=== PATIENT | female | born 1970 | race Caucasian/White ===

== ENCOUNTER 2024-06-08 13:44 | Observation (INO) | payer OTHER, SELFPAY ==
[2024-06-08] VITALS (44 sets, daily range): BP systolic 102–149; BP diastolic 65–86; PULSE 110–126; RESP 13–35; TEMP 36.7–38.4; O2SAT 91–99
--- NOTE | 2024-06-08 13:49 | ECG_ITS ---
[facility] Test Date: 2024-06-08 Pat Name: Esthela Becker Department: Room: Gender: Female License Registration Examiner: : 1970 Requested By: Spencer Ortiz Order Number: [id number] Jens MD: Patience Rousseau M.D. Measurements Intervals [place] Rate: 125 P: 20 CO: 142 QRS: -10 QRSD: 93 T: 97 QT: 307 QTc: 444 Interpretive Statements SINUS TACHYCARDIA POSSIBLE ANTERIOR MYOCARDIAL INFARCTION , OF INDETERMINATE AGE [30 ms Q WAVE IN V3/V4, OR R < 0.2 mV IN V4] MODERATE T-WAVE ABNORMALITY, CONSIDER LATERAL ISCHEMIA [-0.1+ mV T-WAVE IN I/aVL/V5/V6] No previous ECG available for comparison Electronically Signed On 06-10-2024 21:41:34 MIXING OPERATOR by Patience Rousseau M.D. [email or web address]
--- NOTE | 2024-06-08 14:08 | W.ED.WEAKNES ---
HPI - Weakness General: Chief complaint: Weakness Stated complaint: bs435 bp200/100, SHAKING, SWEATING Time Seen by Provider: 06/08/24 14:08 History of Present Illness: 54-year-old female presents to the emergency room with fever weakness high blood sugar. Symptoms began today she is also complaining of left flank pain that started a couple of days ago. Patient is a type II diabetic she stopped taking her metformin due to diarrhea. She denies any dysuria urgency or frequency she has had diarrhea no hematochezia or melena. No chest pain or shortness of breath. Fever began earlier today. She denies productive cough. At one point they were looking at putting her on insulin for her diabetes but she did not because of the cost Associated symptoms: Reports nausea and vomiting; Denies chest pain, chills, dysuria or fever(s) Review of Systems Const: Denies: fever(s) or chills Card: Denies: chest pain Resp: Denies: dyspnea GI: Reports: abdominal pain, nausea, vomiting and diarrhea : Reports: flank pain; Denies: dysuria, urinary frequency or urinary urgency Musc: Denies: neck pain or back pain Skin/Breast: Denies: rash PFSH ED PFSH: Medical History DM type 2 (diabetes mellitus, type 2) Surgical History H/O: Physical Exam Const: COMMON NORMALS: no acute distress GENERAL APPEARANCE: cooperative ORIENTATION/CONSCIOUSNESS: Yes awake, Yes oriented to person, Yes oriented to place and Yes oriented to time HENMT: COMMON NORMALS: normocephalic, atraumatic and hearing grossly normal bilaterally HEAD & SCALP: normocephalic and atraumatic Resp: COMMON NORMALS: normal respiratory effort, No retractions, No use of accessory muscles and clear to auscultation bilaterally AUSCULTATION: clear to auscultation bilaterally Cardio: COMMON NORMALS: regular rhythm and No murmurs present (Cardio) RATE: tachycardic RHYTHM: regular rhythm GI: COMMON NORMALS: Soft to palpation and No hepatosplenomegaly present AUSCULTATION: Yes normoactive bowel sounds PALPATION: Yes Soft to palpation, No Tenderness to palpation present (GI), No Guarding due to palpation present (GI) and Yes No hepatosplenomegaly present Extremity: COMMON NORMALS: normal to inspection, capillary refill normal, no clubbing, cyanosis or edema, no calf tenderness and no pedal edema Neuro: SENSORIUM/ORIENTATION: Yes oriented to person, Yes oriented to place and Yes oriented to time Skin: COMMON NORMALS: no rashes or lesions noted GENERAL SKIN EXAM: no rashes or lesions noted Course Vital Signs: Vital signs: Vital Signs Temperature 98.0 F 06/10/24 13:51 Pulse Rate 83 06/10/24 13:51 Respiratory Rate 14 06/10/24 13:51 Blood Pressure 125/79 06/10/24 13:51 Pulse Oximetry 93 06/10/24 13:51 Oxygen Delivery Me thod Room Air 06/10/24 11:48 MDM - Weakness Medical Decision Making Slight elevation of anion gap blood sugars poorly controlled which has been chronic she has a UTI and she has been tachycardic and febrile white count is not elevated. However these other contributing issues making very concerned suggest we place her on observation started on IV antibiotics discussed with hospitalist orders written Medical Records I reviewed the patient's medical records. Lab Data I reviewed the patient's lab results. 06/10/24 05:02 06/10/24 05:02 Radiology Impressions Abdomen/Pelvis CT 06/08/24 14:20 IMPRESSION: Porcelain gallbladder, recommend surgical consult for nonemergent follow-up. ADDENDUM: 06/08/24 2306 ADDENDUM: Correction for pancreas findings: There is no enhancement as there was no contrast administered. Pancreas is unremarkable. Chest X-Ray 06/08/24 17:03 IMPRESSION: No acute findings. Lumbar Spine CT 06/09/24 19:04 IMPRESSION: 1. Patchy heterogeneous enhancement RIGHT kidney with focal areas of decreased enhancement compatible with pyelonephritis. Recommend correlation for UTI. Additional slight heterogeneous enhancement LEFT kidney partially visualized also suspicious for pyelonephritis. 2. Mild central canal stenosis L4-5 due to disc bulge and facet arthropathy with ligamentum flavum hypertrophy. Narrowing of the LEFT subarticular recess with mild LEFT foraminal narrowing. 3. No visualized epidural or retroperitoneal abscess Notified Burt Easley MD at 06/10/2024 8:56 AM. Laboratory Results WBC 8.65 10^3/uL (3.29-11.43) 06/08/24 14: RBC 4.64 10^6/uL (3.85-5.65) 06/08/24 14:31 Hgb 14.00 g/dL (11.27-16.99) 06/08/24 14:31 Hct 40.3 % (36-47) 06/08/24 14: MCV 86.9 fl (85-98) 06/08/24 14:31 MCH 30.2 pg (27-33) 06/08/24 14: MCHC 34.7 g/dL (30-55) 06/08/24 14: RDW 11.2 % (12.1-15.1) L 06/08/24 14: Plt Count 218 10^3/cmm (157-399) 06/08/24 14: MPV 8.8 fL (7.4-10.4) 06/08/24 14: Neut % (Auto) 92.5 % 06/08/24 14: Lymph % (Auto) 5.2 % 06/08/24 14: [place] % (Auto) 1.3 % 06/08/24 14: Eos % (Auto) 0.5 % 06/08/24 14: Baso % (Auto) 0.2 % 06/08/24 14: Neut # (Auto) 8.00 10^3/uL (1.8-7.7) H 06/08/24 14: Lymph # (Auto) 0.5 10^3/uL (0.8-4.8) L 06/08/24 14:31 [place] # (Auto) 0.1 10^3/uL (0.2-0.9) L 06/08/24 14: Eos # (Auto) 0.0 10^3/uL (0.0-0.8) 06/08/24 14: Baso # (Auto) 0.0 10^3/uL (0.0-0.1) 06/08/24 14: Nucleated RBC % (auto) 0 % 06/08/24 14: Nucleated RBCs # 0.0 /100WBC 06/08/24 14:31 Specimen Type Arterial 06/08/24 14:50 Sample Site Radial, right 06/08/24 14:50 ABG pH 7.45 (7.35-7.45) 06/08/24 14:50 ABG pCO2 28.8 mmHg (35-45) L 06/08/24 14:50 ABG pO2 63.7 mmHg (80.0-100.0) L 06/08/24 14:50 ABG PO2/FiO2 Ratio 227 06/08/24 14:50 ABG HCO3 20.1 mmol/L (22-26) L 06/08/24 14:50 ABG O2 Saturation 93.9 06/08/24 14:50 ABG Base Excess -2.5 mmol/L (-2.0-2.0) L 06/08/24 14:50 Gene Test Pos 06/08/24 14:50 A-a O2 Gradient 12.7 mmHg (5-10) H 06/08/24 14:50 Hematocrit 45.4 % (37-47) 06/08/24 14:50 Hgb O2 Saturation 93.2 % (95-100) L 06/08/24 14:50 Carboxyhemoglobin 0.5 %THgb (0.4-20.1) 06/08/24 14:50 Methemoglobin 0.3 % (0.4-1.5) L 06/08/24 14:50 Total Hemoglobin 14.8 g/dL (12-16) 06/08/24 14:50 Sodium 136.0 mmol/L (131-143) 06/08/24 14:50 Potassium 3.5 mmol/L (3.5-5.0) 06/08/24 14:50 Glucose 344.0 mg/dL (70-115) H 06/08/24 14:50 Ionized Calcium 1.2 mmol/L (1.1-1.4) 06/08/24 14:50 O2 Delivery Device Nc 06/08/24 14:50 O2 Liters/Min 2.0 % 06/08/24 14:50 FiO2 28.0 % 06/08/24 14:50 Plant Reliability Engineer ID [id number] 06/08/24 14:50 Sodium 133 mmol/L (136-145) L 06/08/24 14:31 Potassium 3.7 mmol/L (3.5-5.1) 06/08/24 14:31 Chloride 97 mmol/L (98-107) L 06/08/24 14:31 Carbon Dioxide 20 mmol/L (22-29) L 06/08/24 14:31 Anion Gap 19.7 (5-19) H 06/08/24 14:31 BUN 13 mg/dL (6-20) 06/08/24 14:31 Creatinine 0.8 mg/dL (0.5-0.9) 06/08/24 14:31 GFR Calculation 75.0 mL/min (90-130) L 06/08/24 14:31 Glucose 387 mg/dL (65-115) H 06/08/24 14:31 POC Glucose 388 mg/dL (70-110) H 06/08/24 14:29 Estimat Average Glucose 292 06/08/24 14:31 Hemoglobin A1c 11.8 % (4.0-6.0) H 06/08/24 14:31 Calculated Osmolality 292 mOsm/kg (285-295) 06/08/24 14:31 Lactic Acid 2.1 mmol/L (0.5-2.2) 06/08/24 14:31 Lactic Acid (Sepsis) 1.2 mmol/L (0.5-2.2) 06/08/24 17:30 Calcium 8.7 mg/dL (8.5-10.5) 06/08/24 14:31 Total Bilirubin 0.9 mg/dL (0.15-1.2) 06/08/24 14:31 AST 12 U/L (0-32) 06/08/24 14:31 ALT 14 U/L (0-33) 06/08/24 14:31 Alkaline Phosphatase 180 U/L (35-105) H 06/08/24 14:31 Total Protein 6.6 g/dL (6.6-8.7) 06/08/24 14:31 Albumin 3.7 g/dL (3.5-5.2) 06/08/24 14:31 Globulin 2.9 g/dL (1.3-4.6) 06/08/24 14:31 Lipase 22 U/L (13-60) 06/08/24 14:31 Urine Color Yellow (Yellow) 06/08/24 16:17 Urine Appearance Clear (CLEAR) 06/08/24 16:17 Urine pH 5.5 (5-7) 06/08/24 16:17 Ur Specific [place] 1.027 (1.005-1.030) 06/08/24 16:17 Urine Protein Negative (Negative) 06/08/24 16:17 Urine Glucose (UA) 3+ (Normal) H 06/08/24 16:17 Urine Ketones 2+ (Negative) H 06/08/24 16:17 Urine Blood Negative (Negative) 06/08/24 16:17 Urine Nitrate Positive (Negative) A 06/08/24 16:17 Urine Bilirubin Negative (Negative) 06/08/24 16:17 Urine Urobilinogen 0.2 mg/dL (Negative) 06/08/24 16:17 Ur Leukocyte Esterase Negative (Negative) 06/08/24 16:17 Urine RBC 0-2 /hpf (0-2) 06/08/24 16:17 Urine WBC 6-10 /hpf (0-5) 06/08/24 16:17 Ur Squamous Epith Cells 0-5 /hpf (0-5) 06/08/24 16:17 Amorphous Sediment Not Reportable 06/08/24 16:17 Urine Bacteria 4+ /hpf (NONE) H 06/08/24 16:17 Hyaline Casts 1.65 /lpf 06/08/24 16:17 Serum Ketones Negative (Negative) 06/08/24 14:31 Coronavirus (PCR) Negative (Negative) 06/08/24 16:17 Influenza A (PCR) Negative (Negative) 06/08/24 16:17 Influenza Type B (PCR) Negative (Negative) 06/08/24 16:17 RSV (PCR) Negative (Negative) 06/08/24 16:17 All radiology interpretation(s) finalized by discharge Discharge Plan Discharge Patient Disposition: Admitted As Inpatient Admit Provider: Burt Easley Clinical Impression: UTI (urinary tract infection), Porcelain gallbladder, Flank pain, Fever, Hyperglycemia, Pyelonephritis Condition: Stable Discharge Diet: Cardiac and Diabetic Coding Level of Care Code ED Transportation Equipment Painter for Chg Fwd Related Data Previous Rx's Medication Instructions Recorded ciprofloxacin HCl 500 mg tablet 500 mg PO BID #14 tabs 06/10/24 diabetic supplies, miscellan. #1 ea 06/10/24 insulin glargine 100 unit/mL (3 12 unit (0.12 mL) SUBCUT QPM #15 mL 06/10/24 mL) subcutaneous pen insulin lispro-aabc 100 unit/mL See Rx Instructions .Route 06/10/24 subcutaneous pen .COMPLEX #15 mL magnesium L-threonate 48 mg 48 mg PO DAILY #90 caps 06/10/24 magnesium (667 mg) capsule terbinafine HCl 1 % topical cream 1 applic topical BID 14 days #15 06/10/24 grams Allergies Allergy/AdvReac Type Severity Reaction Status Date / Time No Known Allergies Allergy Verified 06/08/24 14:04
--- NOTE | 2024-06-08 14:20 | CTR_ITS ---
PROCEDURE INFORMATION: Exam: CT Abdomen And Pelvis Without Contrast Exam date and time: 06/08/2024 2:43 PM Age: 54 years old Clinical indication: Abdominal pain TECHNIQUE: Imaging protocol: Computed tomography of the abdomen and pelvis without contrast. Radiation optimization: All CT scans at this facility use at least one of these dose optimization techniques: automated exposure control; mA and/or kV adjustment per patient size (includes targeted exams where dose is matched to clinical indication); or iterative reconstruction. COMPARISON: l spine RADIATION DOSE METRICS: Total DLP (mGy-cm): 782.21 FINDINGS: Limitations: Examination is limited for the evaluation of solid organs and vascular structures due to the lack of intravenous contrast. Lungs: Lung bases are unremarkable. Liver: The liver is enlarged. Gallbladder and biliary ducts: There is calcification in the wall of the gallbladder indicating porcelain gallbladder.. No pericholecystic inflammatory changes to suggest cholecystitis. Pancreas: Pancreas enhances homogeneously without focal mass. No ductal dilation or peripancreatic inflammation. Spleen: The spleen is unremarkable. Adrenal glands: Adrenal glands are unremarkable. Kidneys and ureters: No hydronephrosis or nephrolithiasis. Stomach and bowel: Stomach is not fully distended. Small hiatal hernia. Small and large bowel are normal in caliber without evidence of obstruction. Appendix: Appendix is unremarkable. Intraperitoneal space: No free intraperitoneal air. No fluid collection. Vasculature: There is no aortic aneurysm. There is atherosclerotic disease. Lymph nodes: No pathologically enlarged lymph nodes (by short axis size criteria). Urinary bladder: No focal wall thickening of the urinary bladder. Reproductive: Uterus is unremarkable. No suspicious adnexal lesion seen. Bones/joints: Spherical benign-appearing calcification anterior to the left side of the bladder. No acute osseous abnormality. There is degenerative disease of the spine. Soft tissues: Unremarkable. CT/CT abdomen pelvis wo con [id number] IMPRESSION: Porcelain gallbladder, recommend surgical consult for nonemergent follow-up.
[2024-06-08 14:39] LABS: Glucose Point of Care 388 mg/dL (70-110)
[2024-06-08 14:42] LABS: Basophils % 0.2 %; Eosinophils % 0.5 %; Hematocrit 40.3 % (36-47); Lymphocytes # 0.5 10^3/uL (0.8-4.8); Lymphocytes % 5.2 %; Mean Corpuscular HGB Conc 34.7 g/dL (30-55); Mean Corpuscular Hemoglobin 30.2 pg (27-33); Mean Corpuscular Volume 86.9 fl (85-98); Mean Platelet Volume 8.8 fL (7.4-10.4); Monocytes # 0.1 10^3/uL (0.2-0.9); Monocytes % 1.3 %; Neutrophils % 92.5 %; Nucleated Red Blood Cells % 0 %; Platelet Count 218 10^3/cmm (157-399); Red Blood Count 4.64 10^6/uL (3.85-5.65); Red Cell Distribution Width 11.2 % (12.1-15.1); White Blood Count 8.65 10^3/uL (3.29-11.43)
[2024-06-08 15:01] LABS: Alanine Aminotransferase 14 U/L (0-33); Albumin Level 3.7 g/dL (3.5-5.2); Alkaline Phosphatase 180 U/L (35-105); Anion Gap 19.7 (5-19); Aspartate Amino Transferase 12 U/L (0-32); Blood Urea Nitrogen 13 mg/dL (6-20); Calcium 8.7 mg/dL (8.5-10.5); Carbon Dioxide 20 mmol/L (22-29); Chloride 97 mmol/L (98-107); Globulin 2.9 g/dL (1.3-4.6); Glucose 387 mg/dL (65-115); Ketone (Acetest) Serum Negative (Negative); Lipase 22 U/L (13-60); Osmolality Calculated 292 mOsm/kg (285-295); Potassium 3.7 mmol/L (3.5-5.1); Sodium 133 mmol/L (136-145); Total Bilirubin 0.9 mg/dL (0.15-1.2); Total Protein 6.6 g/dL (6.6-8.7)
[2024-06-08 15:02] LABS: Lactic Sepsis W/Reflex 2.1 mmol/L (0.5-2.2)
[2024-06-08 15:09] LABS: ABG PCO2 28.8 mmHg (35-45); ABG PH Result 7.45 (7.35-7.45); Alveolar-Arterial Oxygen Gradi 12.7 mmHg (5-10); Arterial Blood Gas Hematocrit 45.4 % (37-47); Base Excess ABG -2.5 mmol/L (-2.0-2.0); Blood Gas Allen Test Pos; Blood Gas Operator Identificat GD; Blood Gas Sample Site Radial, right; Blood Gas Sample Type Arterial; Carboxyhemoglobin 0.5 %THgb (0.4-20.1); HCO3 ABG 20.1 mmol/L (22-26); HGB O2 Sat 93.2 % (95-100); Ionized Calcium Level - ABG 1.2 mmol/L (1.1-1.4); Methemoglobin 0.3 % (0.4-1.5); Oxygen Device NC; Oxygen Saturation ABG 93.9; PO2 ABG 63.7 mmHg (80.0-100.0); PO2 FiO2 Ratio Arterial Blood 227; Potassium Level - ABG 3.5 mmol/L (3.5-5.0); Total Hemoglobin 14.8 g/dL (12-16)
[2024-06-08] MEDS: sodium chloride 0.9% 1,000 ML 999 ML IV (15:43)
[2024-06-08 16:24] LABS: Reflex Lactate Order REFLEX LACTIC ORDERD
[2024-06-08 16:36] LABS: Bilirubin Urine Negative (Negative); Blood Urine Negative (Negative); Glucose Urine UA 3+ (Normal); Ketones Urine 2+ (Negative); Leukocyte Esterase Urine Negative (Negative); Nitrate Urine Positive (Negative); Protein Urine Negative (Negative); Specific Gravity, Urine 1.027 (1.005-1.030); Urine Appearance Clear (CLEAR); Urine Color Yellow (Yellow); Urobilinogen Urine 0.2 mg/dL (Negative); pH Urine 5.5 (5-7)
[2024-06-08 16:41] LABS: Add Urine Microscopic? YES; Bacteria Urine 4+ /hpf; Hyaline Casts Urine 1.65 /lpf; RBC Urine 0-2 /hpf (0-2); Squamous Epithelial Cell Urine 0-5 /hpf (0-5)
[2024-06-08 16:52] LABS: Add Urine Culture? Yes
--- NOTE | 2024-06-08 17:03 | XRR_ITS ---
PROCEDURE INFORMATION: Exam: XR Chest Exam date and time: 06/08/2024 5:09 PM Age: 54 years old Clinical indication: Dyspnea; Additional info: Dyspnea/cough TECHNIQUE: Imaging protocol: Radiologic exam of the chest. Views: 1 view. COMPARISON: CT abdomen pelvis wo con [id number] 06/08/2024 2:43 PM FINDINGS: Lungs: Unremarkable. No consolidation. Pleural spaces: Unremarkable. No pleural effusion. No pneumothorax. Heart/Mediastinum: Unremarkable. No cardiomegaly. Bones/joints: Unremarkable. XR/XR chest 1V portable [id number] IMPRESSION: No acute findings.
[2024-06-08 17:14] LABS: Covid PCR NEGATIVE (Negative); Influenza A NEGATIVE (Negative); Influenza B NEGATIVE (Negative); Respiratory Syncytial Virus Ce NEGATIVE (Negative)
[2024-06-08] MEDS: cefTRIAXone 1,000 mg SDV 1000 MG IVP (17:35)
[2024-06-08 17:52] LABS: Lactic Acid level (Lactate) 1.2 mmol/L (0.5-2.2)
--- NOTE | 2024-06-08 18:58 | P.HP_ITS ---
Providers/Chief Complaint 2 Admitting Physician: Burt Easley Chief Complaint: bs435 bp200/100, SHAKING, SWEATING History of Present Illness Esthela Becker is a 54 year old female Medications/Allergies Home Medications Medication Instructions Recorded Confirmed Last Taken Type ibuprofen 200 mg tablet (Advil) 1,000 mg PO Q6H PRN PAIN AND FEVER 06/08/24 06/08/24 06/08/24 07:00 History Allergies Allergy/AdvReac Type Severity Reaction Status Date / Time No Known Allergies Allergy Verified 06/08/24 14:04 PFSH Acute 2 PFSH: Medical History DM type 2 (diabetes mellitus, type 2) Surgical History H/O: Vitals/I&O/Wt Last Vital Signs Temp 101.2 F H 06/08/24 13:58 Pulse 110 H 06/08/24 18:28 Resp 13 06/08/24 17:35 BP 111/81 06/08/24 18:28 Pulse Ox 99 06/08/24 18:28 O2 Del Method Room Air 06/08/24 18:19 Weight last 48 hrs Weight 78.925 kg Physical Exam 2 Narrative: Accompanied by her daughter Const: COMMON NORMALS: patient oriented x3 and alert GENERAL APPEARANCE: c ooperative ORIENTATION/CONSCIOUSNESS: Yes awake HENMT: COMMON NORMALS: oropharynx normal Neck/C-Spine: COMMON NORMALS: no JVD Resp: COMMON NORMALS: normal respiratory effort and clear to auscultation bilaterally AUSCULTATION: clear to auscultation bilaterally Cardio: COMMON NORMALS: no JVD, regular rhythm, S1 normal heart sound present, S2 normal heart sound present and No murmurs present (Cardio) RATE: t achycardic RHYTHM: regular rhythm HEART SOUNDS: S1 normal heart sound present and S2 normal heart sound present GI: COMMON NORMALS: Normal to inspection, nondistended, normoactive bowel sounds present, Soft to palpation and non-tender PALPATION: Yes Soft to palpation Extremity: COMMON NORMALS: no joint enlargement and no pedal edema Neuro: COMMON NORMALS: patient oriented x3 and moves all extremities S ENSORIUM/ORIENTATION: Yes alert Skin: COMMON NORMALS: no rashes or lesions noted GENERAL SKIN EXAM: no rashes or lesions noted Data 06/08/24 14:31 06/08/24 14:31 Micro: Microbiology 06/08/24 14:33 Blood Culture - Preliminary Blood SPECIMEN COLLECTED 06/08/24 14:31 Blood Culture - Preliminary Blood SPECIMEN COLLECTED A&P Assessment and plan (1) High anion gap metabolic acidosis: Reviewed vitals, CBC, ABG, CMP, lactic acid, lipase, UA, serum ketone, respiratory viral panel, chest x-ray, CT abdomen pelvis. ER note, discussed with ER provider. Reviewed EKG, on my interpretation sinus tachycardia with T wave inversion in 1, aVL, without sign of acute IL, pending official interpretation. Suspected early diabetic ketoacidosis with elevated anion gap metabolic acidosis with bicarb down to 20, anion gap up to 19.7, with hyperglycemia, 388, but she states at home blood glucose sometimes reaches as high as 500 with untreated diabetes, with ketones positive in urine. With dehydration. She started on IV hydration, monitor for risk of fluid overload, subcutaneous insulin therapy at current time with Lantus, sliding scale insulin, monitor blood glucose. Monitor for risk of hypoglycemia with insulin initiation. Check magnesium, phosphorus. Treat UTI. Check A1c. She will need long-term treatment for untreated diabetes. (2) Dehydration: Dehydrated, feels thirsty, with dry mucous membranes, decreased skin turgor. Hyaline casts in urine. IV fluid, encourage oral hydration. Monitor for risk of fluid overload. Discontinue IV hydration soon as feasible. (3) UTI (urinary tract infection): UA positive for nitrate, 4+ bacteria. Treat UTI (4) SIRS (systemic inflammatory response syndrome): With sinus tachycardia 110, fever 101.2 Fahrenheit. With urinary tract infection, early DKA. (5) Hyperglycemia: Untreated diabetes, states previously required insulin but could not afford it in the past without insurance, has insurance currently. Has been worried about gaining weight with starting insulin. Discussed with her regarding hyperglycemia, early DKA. She states glucose at home sometimes reaches into 500s. Discussed with her regarding diabetes complications. She reports neuropathy. Discussed regarding risk of retinopathy, nephropathy, risks of CVA, IL, nonhealing wounds, other complications. She verbalized understanding and intention to seek treatment and establish with PCP. Check A1c. At current time with early DKA starting subcutaneous insulin with Lantus 5 units nightly, subcutaneous sliding scale. Consistent carbohydrate diet. Monitor POC glucose. (6) Generalized weakness: multifactorial secondary to above. Treat underlying conditions as above. (7) Gastritis: With nausea and vomiting episode in ER. Possibly secondary to early DKA, although possible gastritis. She takes about 5 tablets of ibuprofen at home daily. Discussed with her to discontinue taking this much ibuprofen due to risk of gastritis, PUD, as well as hypertension, kidney injury and other complications. Will add PPI at current time. Antiemetic as needed. Avoid persistent NSAID use, discussed with her and her daughter. Acetaminophen as needed for musculoskeletal pain. Lidocaine patch. 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 Noted mild ovation of alk phos. Follow-up liver parameters requested. Will need follow-up with surgery for eventual cholecystectomy. Plan Requesting casement consultation as she needs a PCP. Attestations 2 Medical Necessity Statement*: Place in observation for additional assessment management of early DKA, dehydration, untreated diabetes with hyperglycemia, UTI, gastritis, incidentally found porcelain gallbladder. Diagnoses High anion gap metabolic acidosis E87.29 Dehydration E86.0 UTI (urinary tract infection) N39.0 SIRS (systemic inflammatory response syndrome) R65.10 Hyperglycemia R73.9 Generalized weakness R53.1 Gastritis K29.70 Porcelain gallbladder K82.8
[2024-06-08 21:02] LABS: Glucose Point of Care 415 mg/dL (70-110)
[2024-06-08 21:04] LABS: Estmated Average Glucose 292; Hemoglobin A1C 11.8 % (4.0-6.0)
[2024-06-08] MEDS: insulin glargine 100 units/1 mL 5 UNIT SUBCUT (21:16)
[2024-06-08] MEDS: insulin lispro 100 unit/1 mL SUBCUT (21:16)
[2024-06-08] MEDS: enoxaparin 40 mg/0.4 mL Syringe SUBCUT (21:16)
[2024-06-08] MEDS: lactated ringers 1,000 ML 100 ML IV (21:16)
[2024-06-08] MEDS: acetaminophen 325 mg Tablet 650 MG PO (21:27)
[2024-06-09] VITALS (9 sets, daily range): BP systolic 103–140; BP diastolic 65–90; PULSE 92–110; RESP 16–20; TEMP 36.8–37.9; O2SAT 94–96
--- NOTE | 2024-06-09 03:16 | PC.NURSE ---
Patient c/o left flank pain not relieved by Tylenol. Dr. Snow notified and ordered PRN Morphine.
[2024-06-09] MEDS: morphine 4 mg/mL SDV 1 mL 2 MG IVP (03:44)
[2024-06-09 05:25] LABS: Basophils % 0.2 %; Eosinophils % 0.2 %; Hematocrit 37.6 % (36-47); Lymphocytes # 0.6 10^3/uL (0.8-4.8); Lymphocytes % 6.6 %; Mean Corpuscular HGB Conc 34.6 g/dL (30-55); Mean Corpuscular Hemoglobin 30.4 pg (27-33); Mean Corpuscular Volume 87.9 fl (85-98); Mean Platelet Volume 8.8 fL (7.4-10.4); Monocytes # 0.6 10^3/uL (0.2-0.9); Monocytes % 6.3 %; Neutrophils # 7.86 10^3/uL (1.8-7.7); Neutrophils % 86.2 %; Nucleated Red Blood Cells % 0 %; Platelet Count 208 10^3/cmm (157-399); Red Blood Count 4.28 10^6/uL (3.85-5.65); Red Cell Distribution Width 11.4 % (12.1-15.1); White Blood Count 9.12 10^3/uL (3.29-11.43)
[2024-06-09 05:43] LABS: Alanine Aminotransferase 14 U/L (0-33); Albumin Level 3.2 g/dL (3.5-5.2); Alkaline Phosphatase 150 U/L (35-105); Anion Gap 11.7 (5-19); Aspartate Amino Transferase 13 U/L (0-32); Blood Urea Nitrogen 9 mg/dL (6-20); Calcium 8.5 mg/dL (8.5-10.5); Carbon Dioxide 24 mmol/L (22-29); Chloride 100 mmol/L (98-107); Globulin 2.2 g/dL (1.3-4.6); Glomerular Filtration Rate 87.5 mL/min (90-130); Glucose 351 mg/dL (65-115); Magnesium 1.5 mg/dL (1.7-2.3); Osmolality Calculated 287 mOsm/kg (285-295); Potassium 3.7 mmol/L (3.5-5.1); Sodium 132 mmol/L (136-145); Total Bilirubin 0.5 mg/dL (0.15-1.2); Total Protein 5.4 g/dL (6.6-8.7)
[2024-06-09 05:44] LABS: Phosphorus 2.5 mg/dL (2.5-4.5)
[2024-06-09 06:36] LABS: Glucose Point of Care 317 mg/dL (70-110)
[2024-06-09] MEDS: lactated ringers 1,000 ML 100 ML IV (06:56)
[2024-06-09] MEDS: acetaminophen 325 mg Tablet 650 MG PO ×2 (06:56→15:14)
--- NOTE | 2024-06-09 09:03 | PC.CHAP ---
Pastoral Care Encounter/Spiritual Assessment Type of Contact [] Declined statistical methods teacher visit [] Patient/Family/Request visit [] Outpatient visit [] Follow-up visit [] Physician referral [] Code/Alert [x] Routine visit [] Staff referral [] Actively dying [] Patient sleeping [] Family support [] [] Out of room [] Palliative care [] [] Receiving care in room [] Pre-surgical visit [] Trauma [] Long length of stay [] ICU visit [] Other: Relational/Emotional Strength [x] Patient feels connected with others/family/visitors/staff [] Distress [] Loneliness/isolation [] Abandonment Spirituality of Patient [x] Person of Karon [] Attends Denominational of their [place] [x] Believes in Prayer [] Reads Bible or Anglican materials [] There are Spiritual issues to be addressed [employer] Interventions [x] Prayer [x] Active listening [] Non-anxious presence [x] Spiritual/emotional support [] Crisis/trauma care [] Spiritual counseling [] Bereavement support [] Provided bereavement packet [] Provided Bible/devotional materials [] Provided toy/stuffed animal, coloring book to patient or family member [] Provided Communion [] Anointing/[place] [] Salvation [x] Completed spiritual assessment [] Other: Impact on Illness or Injury [] Angry [] Fearful [] Anxious [] Often cries [] Exhaustion [] Unable to work [] Unable to attend mosque [] Unable to walk/stand [] Unable to read [] Unable to drive [] Unable to eat/drink [] Unable to sleep [] Unable to be with family [] Patient intubated [] Other: Summary Time spent with patient 5 min
[2024-06-09] MEDS: lidocaine 5% Patch 1 PATCH TOPICAL (09:11)
[2024-06-09] MEDS: pantoprazole DR 40 mg Tablet PO (09:12)
[2024-06-09] MEDS: insulin lispro 100 unit/1 mL SUBCUT ×4 (09:12→21:21)
[2024-06-09 11:28] LABS: Glucose Point of Care 290 mg/dL (70-110)
[2024-06-09 16:35] LABS: Glucose Point of Care 282 mg/dL (70-110)
[2024-06-09] MEDS: cefTRIAXone 1,000 mg SDV 1000 MG IVP (17:02)
--- NOTE | 2024-06-09 17:04 | PC.NURSE ---
This nurse assumed care of pt at 1615 from JULIETTE Mcdonald.
--- NOTE | 2024-06-09 19:02 | P.PN_ITS ---
Subjective 2 Subjective: That she feels she has had some improvement. She is having left flank pain. Vitals/I&O/Wt Last Vital Signs Temp 98.5 F 06/09/24 15:39 Pulse 95 06/09/24 15:39 Resp 17 06/09/24 15:39 BP 140/90 06/09/24 15:39 Pulse Ox 96 06/09/24 15:39 O2 Del Method Room Air 06/09/24 15:39 06/09/24 06/09/24 06/09/24 06:59 14:59 22:59 Intake Total 966.667 / 7123.403 2720 / 1650 720 / 2370 Output Total 500 / 1000 700 / 700 300 / 1000 Balance 466.667 / 966.667 950 / 950 420 / 1370 Weight last 48 hrs Weight 81.284 kg Weight 78.925 kg Physical Exam 2 Narrative: Accompanied by her daughter Const: COMMON NORMALS: patient oriented x3 and alert GENERAL APPEARANCE: c ooperative ORIENTATION/CONSCIOUSNESS: Yes awake HENMT: COMMON NORMALS: oropharynx normal Neck/C-Spine: COMMON NORMALS: no JVD Resp: COMMON NORMALS: normal respiratory effort and clear to auscultation bilaterally AUSCULTATION: clear to auscultation bilaterally Cardio: COMMON NORMALS: no JVD, regular rhythm, S1 normal heart sound present, S2 normal heart sound present and No murmurs present (Cardio) RATE: t achycardic RHYTHM: regular rhythm HEART SOUNDS: S1 normal heart sound present and S2 normal heart sound present GI: COMMON NORMALS: Normal to inspection, nondistended, normoactive bowel sounds present, Soft to palpation and non-tender PALPATION: Yes Soft to palpation Extremity: COMMON NORMALS: no joint enlargement and no pedal edema Neuro: COMMON NORMALS: patient oriented x3 and moves all extremities S ENSORIUM/ORIENTATION: Yes alert Skin: COMMON NORMALS: no rashes or lesions noted GENERAL SKIN EXAM: no rashes or lesions noted Data 06/09/24 05:02 06/09/24 05:02 Micro: Microbiology 06/08/24 14:33 Blood Culture - Preliminary Blood NEGATIVE TO DATE 06/08/24 14:31 Blood Culture - Preliminary Blood NEGATIVE TO DATE A&P Assessment and plan (1) SIRS (systemic inflammatory response syndrome): Again with recurrent fever today 100.3 F. Having left flank pain. Noted uncontrolled diabetes, hemoglobin A1c is 11.8. Follow-up blood culture. Will further assess contrast-enhanced CT lumbar spine. At risk of occult infection with uncontrolled diabetes, immunocompromise. Reviewed blood culture, urine culture. So far negative. Pending. (2) High anion gap metabolic acidosis: Reviewed vitals, CMP, magnesium. Anion gap with improvement, bicarb with improvement. Anion gap acidosis resolved. Glucose still elevated. Hypomagnesemia 1.5. Supplement. Increase Lantus dose to 10 units. Monitor for risk of hypoglycemia with insulin initiation. Suspected early diabetic ketoacidosis with elevated anion gap metabolic acidosis with bicarb down to 20, anion gap up to 19.7, with hyperglycemia, 388, but she states at home blood glucose sometimes reaches as high as 500 with untreated diabetes, with ketones positive in urine. With dehydration. She started on IV hydration, monitor for risk of fluid overload, subcutaneous insulin therapy at current time with Lantus, sliding scale insulin, monitor blood glucose. Monitor for risk of hypoglycemia with insulin initiation. Check magnesium, phosphorus. Treat UTI. Check A1c. She will need long-term treatment for untreated diabetes. (3) Dehydration: Improved. Stop IV fluid. Continue to encourage oral hydration. Dehydrated, feels thirsty, with dry mucous membranes, decreased skin turgor. Hyaline casts in urine. IV fluid, encourage oral hydration. Monitor for risk of fluid overload. Discontinue IV hydration soon as feasible. (4) UTI (urinary tract infection): Continue ceftriaxone. Reviewed urine culture, so far negative, pending. UA positive for nitrate, 4+ bacteria. Treat UTI (5) Hyperglycemia: Reviewed A1c, noted elevated 11.8. Still hyperglycemic. Increase Lantus to 10 units. Monitor for risk of hypoglycemia with escalation. Untreated diabetes, states previously required insulin but could not afford it in the past without insurance, has insurance currently. Has been worried about gaining weight with starting insulin. Discussed with her regarding hyperglycemia, early DKA. She states glucose at home sometimes reaches into 500s. Discussed with her regarding diabetes complications. She reports neuropathy. Discussed regarding risk of retinopathy, nephropathy, risks of CVA, AR, nonhealing wounds, other complications. She verbalized understanding and intention to seek treatment and establish with PCP. At current time with early DKA starting subcutaneous insulin with Lantus 5 units nightly, subcutaneous sliding scale. Consistent carbohydrate diet. Monitor POC glucose. (6) Generalized weakness: Showing improvement. multifactorial secondary to above. Treat underlying conditions as above. (7) Gastritis: So far without recurrence of vomiting. With nausea and vomiting episode in ER. Possibly secondary to early DKA, although possible gastritis. She takes about 5 tablets of ibuprofen at home daily. Discussed with her to discontinue taking this much ibuprofen due to risk of gastritis, PUD, as well as hypertension, kidney injury and other complications. Will add PPI at current time. Antiemetic as needed. Avoid persistent NSAID use, discussed with her and her daughter. Acetaminophen as needed for musculoskeletal pain. Lidocaine patch. 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 Noted mild ovation of alk phos. Follow-up liver parameters requested. Will need follow-up with surgery for eventual cholecystectomy. Plan Requesting casement consultation as she needs a PCP. Discussed with leather case finisher. Attestations 2 Medical Necessity Statement*: Continue admission for assessment management of SIRS, possible occult infection in a lady with immune compromise, uncontrolled diabetes, UTI, escalation of insulin therapy. and High MDM includes amount and/or complexity of data reviewed/ordered [ resulted lab(s)/test(s) and other healthcare professional discussion] and described risk of complication, morbidity or mortality of management as documented Diagnoses SIRS (systemic inflammatory response syndrome) R65.10 High anion gap metabolic acidosis E87.29 Dehydration E86.0 UTI (urinary tract infection) N39.0 Hyperglycemia R73.9 Generalized weakness R53.1 Gastritis K29.70 Porcelain gallbladder K82.8
--- NOTE | 2024-06-09 19:04 | CT_ITS ---
WS: [id number] CT LUMBAR SPINE TECHNIQUE: Contrast-enhanced CT of the lumbar spine with coronal and sagittal reformatted images. CLINICAL INFORMATION: L side/flank pain, fever, untreated DM COMPARISON: None. DLP: 835.[address] scans at [facility] use at least one of these dose optimization techniques: automated e xposure control; mA and/or kV adjustment per patient size (includes targeted exams where dose is matc hed to clinical indication); or iterative reconstruction. FINDINGS: L1-L2: Normal. L2-L3: Mild annular bulging. Mild facet arthropathy. Mild LEFT foraminal narrowing. L3-L4: Mild annular bulging. Moderate facet arthropathy. Mild bilateral foraminal narrowing. L4-L5: Mild annular bulge with mild central canal stenosis. Moderate facet arthropathy. Narrowing of the LEFT subarticular recess. Mild LEFT foraminal narrowing. L5-S1: Mild annular bulging. Small central protrusion. Moderate facet arthropathy ligamentum flavum h ypertrophy. Foramen are patent. Visualized pelvic bony structures: Normal. Paravertebral soft tissues: Normal. Patchy heterogeneous enhancement RIGHT kidney partially visualized suspicious for pyelonephritis. Mor e focal areas of pyelonephritis in the upper pole. Heterogeneous enhancement LEFT kidney also suspici ous for pyelonephritis. Recommend correlation for UTI. CT/CT lumbar spine w con [id number] IMPRESSION: 1. Patchy heterogeneous enhancement RIGHT kidney with focal areas of decreased enhancement compatible with pyelonephritis. Recommend correlation for UTI. Add itional slight heterogeneous enhancement LEFT kidney partially visualized also suspicious for pyelonephritis. 2. Mild central canal stenosis L4-5 due to disc bulge and facet arthropathy wi th ligamentum flavum hypertrophy. Narrowing of the LEFT subarticular recess wit h mild LEFT foraminal narrowing. 3. No visualized epidural or retroperitoneal abscess Notified Burt Easley MD at 06/10/2024 8:56 AM.
[2024-06-09] MEDS: magnesium sulfate premix 2 GM/50 ML PIGGYBACK IV (20:40)
[2024-06-09] MEDS: enoxaparin 40 mg/0.4 mL Syringe SUBCUT (20:41)
[2024-06-09 21:06] LABS: Glucose Point of Care 287 mg/dL (70-110)
[2024-06-09] MEDS: insulin glargine 100 units/1 mL 10 UNIT SUBCUT (21:21)
--- NOTE | 2024-06-09 22:39 | PC.NURSE ---
Addendum entered by Angeles Barriga RN 06/10/24 07:29: Dr. Easley states that abdominal did not have contrast, we are looking for any infection. Ordered to get lumbar CT with contrast. Original Note: CT called this nurse to confirm that patient is supposed to have CT of lumbar spine that is ordered. CT staff member states that patient had a CT of abdomen yesterday and that the lumbar spine should be able to be seen in this. This nurse stated to CT staff member to call physician to verify this. Dr. Snow stated to CT staff to hold off on CT until morning and verify with day time physician.
[2024-06-10] VITALS: BP 113/76; PULSE 92; RESP 17; TEMP 37; O2SAT 95
[2024-06-10 04:00] VITALS: BP 128/80; PULSE 95; RESP 16; TEMP 37; O2SAT 94
[2024-06-10 05:39] LABS: Basophils % 0.3 %; Eosinophils % 0.5 %; Lymphocytes # 1.3 10^3/uL (0.8-4.8); Lymphocytes % 20.2 %; Mean Corpuscular HGB Conc 34.7 g/dL (30-55); Mean Corpuscular Volume 86.3 fl (85-98); Mean Platelet Volume 9.1 fL (7.4-10.4); Monocytes # 0.6 10^3/uL (0.2-0.9); Monocytes % 9.5 %; Neutrophils # 4.58 10^3/uL (1.8-7.7); Nucleated Red Blood Cells % 0 %; Platelet Count 195 10^3/cmm (157-399); Red Blood Count 4.17 10^6/uL (3.85-5.65); Red Cell Distribution Width 11.1 % (12.1-15.1); White Blood Count 6.63 10^3/uL (3.29-11.43)
[2024-06-10 05:52] LABS: Glucose Point of Care 398 mg/dL (70-110)
[2024-06-10 05:59] LABS: Magnesium 1.8 mg/dL (1.7-2.3)
[2024-06-10 06:00] LABS: Alanine Aminotransferase 16 U/L (0-33); Alkaline Phosphatase 135 U/L (35-105); Anion Gap 15.3 (5-19); Aspartate Amino Transferase 17 U/L (0-32); Blood Urea Nitrogen 8 mg/dL (6-20); Calcium 8.1 mg/dL (8.5-10.5); Carbon Dioxide 23 mmol/L (22-29); Chloride 103 mmol/L (98-107); Creatinine Clr Calc Pharmacy 106.9796; Globulin 2.8 g/dL (1.3-4.6); Glomerular Filtration Rate 104.6 mL/min (90-130); Glucose 248 mg/dL (65-115); Osmolality Calculated 293 mOsm/kg (285-295); Potassium 3.3 mmol/L (3.5-5.1); Sodium 138 mmol/L (136-145); Total Bilirubin 0.3 mg/dL (0.15-1.2); Total Protein 5.8 g/dL (6.6-8.7)
[2024-06-10 06:34] LABS: Glucose Point of Care 287 mg/dL (70-110)
[2024-06-10] MEDS: iohexol 350 mg/mL 500 mL Btl (per mL) IV (07:57)
[2024-06-10] MEDS: insulin lispro 100 unit/1 mL SUBCUT ×2 (08:01→11:52)
[2024-06-10] MEDS: lidocaine 5% Patch 1 PATCH TOPICAL (08:01)
[2024-06-10] MEDS: pantoprazole DR 40 mg Tablet PO (08:02)
[2024-06-10 08:03] VITALS: BP 150/91; PULSE 91; RESP 16; TEMP 36.7; O2SAT 94
--- NOTE | 2024-06-10 09:48 | PM.DCS ---
Discharge Providers Date of Admission: 06/08/24 18:22 Date of Discharge: June 10, 2024 Attending Provider at Admission: Burt Easley Attending Provider at Discharge: Burt Easley Diagnoses at Discharge Discharge Diagnosis (1) SIRS (systemic inflammatory response syndrome): Status: Acute (2) High anion gap metabolic acidosis: Status: Acute (3) Dehydration: Status: Acute (4) UTI (urinary tract infection): Status: Acute (5) Hyperglycemia: Status: Acute (6) Generalized weakness: Status: Acute (7) Gastritis: Status: Acute (8) Porcelain gallbladder: Status: Acute Reason for Visit Reason for Visit: [id number] bp200/100, SHAKING, SWEATING Hospital Course Hospital Course Pleasant 54-year-old lady with history of diabetes, not on treatment, previously without insurance could not afford insulin, subsequently also with concern about weight gain with starting of insulin has never initiated treatment, and before this hospitalization also without a PCP, came in due to generalized weakness, malaise, chills, with high blood sugars, at home sugars would reach out up into 500s, having left flank pain. On presentation with SIRS with sinus tachycardia 122, fever 101.2 Fahrenheit, lactic acid normal. Blood cultures obtained, so far without growth, UA suggestive of urinary tract infection, urine culture so far growing gram-negative rods. Additionally with anion gap metabolic acidosis, increased anion gap, low bicarb, hyperglycemia, dehydration, was found to be in suspected early DKA, pH was normal on ABG. She was admitted and started on insulin, IV hydration for suspected early DKA, A1c was checked and was found to have uncontrolled diabetes with A1c of 11.8. Was treated with ceftriaxone for urinary tract infection. Blood culture so far remains negative. Original CT abdomen pelvis on presentation was not reporting pyelonephritis, however, she continues to have left flank pain with recurrent fever, with uncontrolled diabetes, immunocompromise, this additionally assessed by contrast CT of lumbar spine to assess for any psoas abscess or other source of infection and pain. This CT showed that she was having complicated urinary tract infection with pyelonephritis with findings of pyelonephritis possibly progressing into a recurrent or chronic condition. No signs of emphysematous pyelonephritis. With treatment her fever and tachycardia resolved, symptoms improved with near resolution of left flank pain. Early DKA resolved. Blood glucose control improving with Lantus and sliding scale insulin, consistent carbohydrate diet. We discussed with her importance of continued treatment of diabetes, risks of complications including infections, but also retinopathy, nephropathy, risk of CVA, stroke, other complications. She has been having some symptoms of neuropathy already. She is asked to establish with primary care provider. She is given prescription for continued insulin with long-acting Lantus 12 units nightly, and for now starting with once daily sliding scale insulin which may be escalated further depending on response and her comfort. She has been concerned about weight gain with insulin, we discussed that certainly risks of severe complications would outweigh any possible limited weight gain that may occur, and she is encouraged to seek weight loss strategies with primary provider but importantly continue insulin given need for treatment diabetes, which she states she understands and agrees with. She is also encouraged to discontinue chronic use of NSAID, she has been chronically on ibuprofen. She had an episode of vomiting on presentation. So far has not had any protracted symptoms of dyspepsia. Please follow-up. Please follow-up urine cultures and for resolution of complicated urinary tract infection. In case of any further issues or recurrence please refer to urology. Terbinafine is provided for ringworm on her left lower abdomen. Physical Exam Const: COMMON NORMALS: patient oriented x3 and alert GENERAL APPEARANCE: cooperative ORIENTATION/CONSCIOUSNESS: Yes awake HENMT: COMMON NORMALS: oropharynx normal Neck/C-Spine: COMMON NORMALS: no JVD Resp: COMMON NORMALS: normal respiratory effort and clear to auscultation bilaterally AUSCULTATION: clear to auscultation bilaterally Cardio: COMMON NORMALS: no JVD, regular rhythm, S1 normal heart sound present, S2 normal heart sound present and No murmurs present (Cardio) RHYTHM: regular rhythm HEART SOUNDS: S1 normal heart sound present and S2 normal heart sound present GI: COMMON NORMALS: Normal to inspection, nondistended, normoactive bowel sounds present, Soft to palpation and non-tender PALPATION: Yes Soft to palpation Extremity: COMMON NORMALS: no joint enlargement and no pedal edema Neuro: COMMON NORMALS: patient oriented x3 and moves all extremities SENSORIUM/ORIENTATION: Yes alert Skin: COMMON NORMALS: no rashes or lesions noted GENERAL SKIN EXAM: no rashes or lesions noted Discharge Data Studies Completed and Pending Completed Studies During Hospitalization Category Date Time Status CT abdomen pelvis wo con [id number] Stat Cat Scan 06/08/24 14:[address] lumbar spine w con [id number] Routine Cat Scan 06/09/24 19:04 Completed XR chest 1V portable [id number] Stat Exams 06/08/24 17:03 Completed Pending at discharge Category Date Time Status Blood Culture Stat Lab 06/08/24 14:33 Results Complete Blood Count w/Auto AM LABS Lab 06/11/24 04:00 Ordered Comprehensive Metabolic Panel AM LABS Lab 06/11/24 04:00 Ordered Urine Culture Stat Lab 06/08/24 16:17 Results Radiology Impressions Abdomen/Pelvis CT 06/08/24 14:20 IMPRESSION: Porcelain gallbladder, recommend surgical consult for nonemergent follow-up. ADDENDUM: 06/08/24 1706 ADDENDUM: Correction for pancreas findings: There is no enhancement as there was no contrast administered. Pancreas is unremarkable. Chest X-Ray 06/08/24 17:03 IMPRESSION: No acute findings. Lumbar Spine CT 06/09/24 19:04 IMPRESSION: 1. Patchy heterogeneous enhancement RIGHT kidney with focal areas of decreased enhancement compatible with pyelonephritis. Recommend correlation for UTI. Additional slight heterogeneous enhancement LEFT kidney partially visualized also suspicious for pyelonephritis. 2. Mild central canal stenosis L4-5 due to disc bulge and facet arthropathy with ligamentum flavum hypertrophy. Narrowing of the LEFT subarticular recess with mild LEFT foraminal narrowing. 3. No visualized epidural or retroperitoneal abscess Notified Burt Easley MD at 06/10/2024 8:56 AM. Laboratory Results WBC 6.63 10^3/uL (3.29-11.43) 06/10/24 05:02 RBC 4.17 10^6/uL (3.85-5.65) 06/10/24 05:02 Hgb 12.50 g/dL (11.27-16.99) 06/10/24 05:02 Hct 36.0 % (36-47) 06/10/24 05:02 MCV 86.3 fl (85-98) 06/10/24 05:02 MCH 30.0 pg (27-33) 06/10/24 05:02 MCHC 34.7 g/dL (30-55) 06/10/24 05:02 RDW 11.1 % (12.1-15.1) L 06/10/24 05:02 Plt Count 195 10^3/cmm (157-399) 06/10/24 05:02 MPV 9.1 fL (7.4-10.4) 06/10/24 05:02 Neut % (Auto) 69.0 % 06/10/24 05:02 Lymph % (Auto) 20.2 % 06/10/24 05:02 [place] % (Auto) 9.5 % 06/10/24 05:02 Eos % (Auto) 0.5 % 06/10/24 05:02 Baso % (Auto) 0.3 % 06/10/24 05:02 Neut # (Auto) 4.58 10^3/uL (1.8-7.7) 06/10/24 05:02 Lymph # (Auto) 1.3 10^3/uL (0.8-4.8) 06/10/24 05:02 [place] # (Auto) 0.6 10^3/uL (0.2-0.9) 06/10/24 05:02 Eos # (Auto) 0.0 10^3/uL (0.0-0.8) 06/10/24 05:02 Baso # (Auto) 0.0 10^3/uL (0.0-0.1) 06/10/24 05:02 Nucleated RBC % (auto) 0 % 06/10/24 05:02 Nucleated RBCs # 0.0 /100WBC 06/10/24 05:02 Specimen Type Arterial 06/08/24 14:50 Sample Site Radial, right 06/08/24 14:50 ABG pH 7.45 (7.35-7.45) 06/08/24 14:50 ABG pCO2 28.8 mmHg (35-45) L 06/08/24 14:50 ABG pO2 63.7 mmHg (80.0-100.0) L 06/08/24 14:50 ABG PO2/FiO2 Ratio 227 06/08/24 14:50 ABG HCO3 20.1 mmol/L (22-26) L 06/08/24 14:50 ABG O2 Saturation 93.9 06/08/24 14:50 ABG Base Excess -2.5 mmol/L (-2.0-2.0) L 06/08/24 14:50 Gene Test Pos 06/08/24 14:50 A-a O2 Gradient 12.7 mmHg (5-10) H 06/08/24 14:50 Hematocrit 45.4 % (37-47) 06/08/24 14:50 Hgb O2 Saturation 93.2 % (95-100) L 06/08/24 14:50 Carboxyhemoglobin 0.5 %THgb (0.4-20.1) 06/08/24 14:50 Methemoglobin 0.3 % (0.4-1.5) L 06/08/24 14:50 Total Hemoglobin 14.8 g/dL (12-16) 06/08/24 14:50 Sodium 136.0 mmol/L (131-143) 06/08/24 14:50 Potassium 3.5 mmol/L (3.5-5.0) 06/08/24 14:50 Glucose 344.0 mg/dL (70-115) H 06/08/24 14:50 Ionized Calcium 1.2 mmol/L (1.1-1.4) 06/08/24 14:50 O2 Delivery Device Nc 06/08/24 14:50 O2 Liters/Min 2.0 % 06/08/24 14:50 FiO2 28.0 % 06/08/24 14:50 Wire Stripper ID Gd 06/08/24 14:50 Sodium 138 mmol/L (136-145) 06/10/24 05:02 Potassium 3.3 mmol/L (3.5-5.1) L 06/10/24 05:02 Chloride 103 mmol/L (98-107) 06/10/24 05:02 Carbon Dioxide 23 mmol/L (22-29) 06/10/24 05:02 Anion Gap 15.3 (5-19) 06/10/24 05:02 BUN 8 mg/dL (6-20) 06/10/24 05:02 Creatinine 0.6 mg/dL (0.5-0.9) 06/10/24 05:02 GFR Calculation 104.6 mL/min (90-130) 06/10/24 05:02 Glucose 248 mg/dL (65-115) H 06/10/24 05:02 POC Glucose 287 mg/dL (70-110) H 06/10/24 06:31 Estimat Average Glucose 292 06/08/24 14:31 Hemoglobin A1c 11.8 % (4.0-6.0) H 06/08/24 14:31 Calculated Osmolality 293 mOsm/kg (285-295) 06/10/24 05:02 Lactic Acid 2.1 mmol/L (0.5-2.2) 06/08/24 14:31 Lactic Acid (Sepsis) 1.2 mmol/L (0.5-2.2) 06/08/24 17:30 Calcium 8.1 mg/dL (8.5-10.5) L 06/10/24 05:02 Phosphorus 2.5 mg/dL (2.5-4.5) 06/09/24 05:02 Magnesium 1.8 mg/dL (1.7-2.3) 06/10/24 05:02 Total Bilirubin 0.3 mg/dL (0.15-1.2) 06/10/24 05:02 AST 17 U/L (0-32) 06/10/24 05:02 ALT 16 U/L (0-33) 06/10/24 05:02 Alkaline Phosphatase 135 U/L (35-105) H 06/10/24 05:02 Total Protein 5.8 g/dL (6.6-8.7) L 06/10/24 05:02 Albumin 3.0 g/dL (3.5-5.2) L 06/10/24 05:02 Globulin 2.8 g/dL (1.3-4.6) 06/10/24 05:02 Lipase 22 U/L (13-60) 06/08/24 14:31 Urine Color Yellow (Yellow) 06/08/24 16:17 Urine Appearance Clear (CLEAR) 06/08/24 16:17 Urine pH 5.5 (5-7) 06/08/24 16:17 Ur Specific [place] 1.027 (1.005-1.030) 06/08/24 16:17 Urine Protein Negative (Negative) 06/08/24 16:17 Urine Glucose (UA) 3+ (Normal) H 06/08/24 16:17 Urine Ketones 2+ (Negative) H 06/08/24 16:17 Urine Blood Negative (Negative) 06/08/24 16:17 Urine Nitrate Positive (Negative) A 06/08/24 16:17 Urine Bilirubin Negative (Negative) 06/08/24 16:17 Urine Urobilinogen 0.2 mg/dL (Negative) 06/08/24 16:17 Ur Leukocyte Esterase Negative (Negative) 06/08/24 16:17 Urine RBC 0-2 /hpf (0-2) 06/08/24 16:17 Urine WBC 6-10 /hpf (0-5) 06/08/24 16:17 Ur Squamous Epith Cells 0-5 /hpf (0-5) 06/08/24 16:17 Amorphous Sediment Not Reportable 06/08/24 16:17 Urine Bacteria 4+ /hpf (NONE) H 06/08/24 16:17 Hyaline Casts 1.65 /lpf 06/08/24 16:17 Serum Ketones Negative (Negative) 06/08/24 14:31 Coronavirus (PCR) Negative (Negative) 06/08/24 16:17 Influenza A (PCR) Negative (Negative) 06/08/24 16:17 Influenza Type B (PCR) Negative (Negative) 06/08/24 16:17 RSV (PCR) Negative (Negative) 06/08/24 16:17 Vitals Last Vital Signs Temp 98.1 F 06/10/24 08:03 Pulse 91 06/10/24 08:03 Resp 16 06/10/24 08:03 BP 150/91 06/10/24 08:03 Pulse Ox 94 06/10/24 08:03 O2 Del Method Room Air 06/10/24 08:03 Discharge Plan Discharge Patient Disposition: Home Condition: Stable Prescriptions: New ciprofloxacin HCl 500 mg tablet 500 mg PO BID Qty: 14 0RF insulin glargine 100 unit/mL (3 mL) insulin pen 12 unit SUBCUT QPM Qty: 15 3RF insulin lispro-aabc 100 unit/mL insulin pen See Rx Instructions .ROUTE .COMPLEX Qty: 15 3RF Rx Instructions: Check before lunch Glucose: 141-180 - 2 units 181-220 - 3 221-260 - 4 261-300 - 5 301-350 - 6 351-400 - 7 >400 - 8 units magnesium L-threonate 48 mg magnesium (667 mg) capsule 48 mg PO DAILY Qty: 90 0RF (DME) diabetic supplies, miscellan. Misc See Rx Instructions .Route Qty: 1 0RF Rx Instructions: Glucometer, 90 lances, 90 strips terbinafine HCl 1 % cream 1 applic topical BID 14 Days Qty: 15 0RF Discontinued ibuprofen [Advil] 200 mg Tablet 1,000 mg PO Q6H PRN (Reason: PAIN AND FEVER ) Discharge Orders: Discharge Order (Routine); Ordered 06/10/24 Ordered By: Burt Easley Referrals: [facility] [Other] - 06/28/24 10:30 am (They have been notified of your need for an appointment. If you do not hear from then in 2-3 days please call to schedule.APPOINTMENT WITH DR LEVY [phone]) Discharge Diet: Cardiac and Diabetic Patient Instructions: Diabetes and Diet, Ciprofloxacin (By mouth), Insulin Glargine (By injection) (Lantus, Lantus SoloStar, Toujeo, Semglee), Insulin Lispro (By injection) (Humalog, Humalog Pen, Lispro-PFC,..., Urinary Tract Infection in Women (GEN), Potassium Content of Foods List (GEN), Type 2 Diabetes in Adults: New Diagnosis (GEN), Insulin Pens (GEN), What to Do if Your Blood Sugar is Low (GEN), Pyelonephritis Activity Restrictions/Additional Instructions: Please continue insulin as discussed. Target blood sugars 100-150. Avoid low blood sugars. Cut Lantus dose in half if you are sugar anytime during the day is less than 70. If your sugar is less than 70 and especially less than or equal to 55, hold any upcoming insulin, take sugary snacks, recheck your blood glucose in 15 minutes to make sure it is rising. If it is not, seek medical attention immediately. Low blood glucose is dangerous and can lead to risk of stroke and other complications. In case your blood sugars are persistently elevated above 150, you could gradually increase Lantus dose until blood sugars are coming into range without any values below 100. Do not increase by more than 1-2 units at a time. Follow-up with your primary doctor for continued optimization of diabetes control. As well as to monitor for any diabetic complications including neuropathy, eyes for retinopathy, kidneys for nephropathy. Untreated diabetes also risks difficult to heal or severe life-threatening infections as well as risk of stroke, heart attack. Follow-up with your primary doctor to also discuss regarding weight loss strategies. Complete antibiotic course for complicated urine tract infection with pyelonephritis, possible now chronic pyelonephritis. As discussed watch out for any inflammation, pain, swelling or tenderness of any tendons or connective tissue, in case you do notice this, stop antibiotic and seek medical attention. Have your primary doctor reassess for resolution of complicated urinary infection, possibly chronic pyelonephritis. Consider referral to urology. You are required potassium magnesium supplementation during hospitalization, supplement as provided for you for magnesium, include potassium rich foods. Avoid taking NSAIDs like ibuprofen and others for any prolonged period of time due to risk of gastritis, elevated blood pressure, kidney injury and other complications. In case of any recurrent dyspepsia, nausea, indigestion, upper abdominal discomfort or pain, discussed with your primary doctor to seek further assessment by endoscopic evaluation to make sure there are no concerning causes. Discharge Attestations Time Spent in Discharge Care*: greater than 30 min Quality Metrics Clinical Quality Measures [ No reported AMI, CVA or VTE this stay] Coding Level of Care Code 92410 Total time (in minutes) for Discharge: 50 Diagnoses SIRS (systemic inflammatory response syndrome) R65.10 High anion gap metabolic acidosis E87.29 Dehydration E86.0 UTI (urinary tract infection) N39.0 Hyperglycemia R73.9 Generalized weakness R53.1 Gastritis K29.70 Porcelain gallbladder K82.8
[2024-06-10 11:10] LABS: Glucose Point of Care 306 mg/dL (70-110)
[2024-06-10] MEDS: potassium chloride ER 20 mEq Tablet 40 MEQ PO (11:18)
[2024-06-10 11:48] VITALS: BP 125/79; PULSE 83; RESP 14; TEMP 36.6; O2SAT 93
[2024-06-10 13:51] VITALS: BP 125/79; PULSE 83; RESP 14; TEMP 36.7; O2SAT 93
--- NOTE | 2024-06-10 13:53 | PC.NURSE ---
Educated patient on sliding scale for newly diagnosed diabetes. Educated patient on Lantus, checking feet for sores daily, don't wear shoes that rub any part of the foot, cut toe nails straight across and no lotion between the toes. Went over the sliding scale for short acting and explained long acting insulin twice until patient acknowledged understanding about insulin. If blood sugar is below 70 to cut lantus in half for that evening. If machine ever reads low, eat something very sweet and notified physician or if machine reads Hi to call physician or come to the ER immediately. Went over diabetic foods/diet sheet with patient and other medications. Patient verbalized understanding and all questions were answered.
== END 2024-06-10 12:29 | disposition home or self-care (01) ==
LOC: ER 16:35 → MEDSURG 06-09 10:50
PROVIDERS: Emergency Medicine; Admitting Provider Internal Medicine; Emergency Provider Family Medicine; Visit Provider Internal Medicine
DX: E11.65 Type 2 diabetes mellitus with hyperglycemia (principal); R65.10 Systemic inflammatory response syndrome (SIRS) of non-infectious origin without acute organ dysfunction; R00.0 Tachycardia, unspecified; E87.29 Other acidosis; E86.0 Dehydration; N39.0 Urinary tract infection, site not specified; K29.70 Gastritis, unspecified, without bleeding; K82.8 Other specified diseases of gallbladder; Z79.4 Long term (current) use of insulin; B35.9 Dermatophytosis, unspecified; Z79.1 Long term (current) use of non-steroidal anti-inflammatories (NSAID); Z79.84 Long term (current) use of oral hypoglycemic drugs
CPT/HCPCS: 0241U; 36415; 36416; 36600; 71045; 72132; 74176; 80051; 80053; 81001; 82009; 82330; 82805; 82962; 83036; 83605; 83690; 83735; 84100; 85025; 87040; 87077; 87086; 87186; 93005; 96361; 96365; 96366; 96372; 96375; 99285; G0378; J0696; J1650; J1815; J2270; J3475; J7030; J7120

== ENCOUNTER 2024-12-13 06:46 | Inpatient (IN) | payer OTHER, SELFPAY ==
[2024-12-13] VITALS (25 sets, daily range): BP systolic 100–150; BP diastolic 67–107; PULSE 84–105; RESP 12–26; TEMP 36.8; O2SAT 80–98; BMI 35.7
--- NOTE | 2024-12-13 06:50 | ECG_ITS ---
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 Measurements Intervals Kiefer Rate: 104 P: 65 TX: 164 QRS: -1 QRSD: 105 T: -33 QT: 363 QTc: 479 Interpretive Statements SINUS TACHYCARDIA LOW QRS VOLTAGE IN PRECORDIAL LEADS [QRS DEFLECTION < 1.0 mV IN CHEST LEADS] ANTERIOR MYOCARDIAL INFARCTION , PROBABLY RECENT [40+ ms Q WAVE AND/OR ST/T ABNORMALITY IN V3/V4] INFERIOR MYOCARDIAL INFARCTION , PROBABLY RECENT [40+ ms Q WAVE AND/OR ST/T ABNORMALITY IN II/aVF] ACUTE WA Compared to ECG 06/08/2024 14:13:34 Low QRS voltage now present T-wave abnormality no longer present Possible ischemia no longer present Myocardial infarct finding still present Electronically Signed On 12-13-2024 15:03:54 CDT by Patience Rousseau M.D. [email or web address]
--- NOTE | 2024-12-13 06:56 | XRR_ITS ---
PROCEDURE INFORMATION: Exam: XR Chest Exam date and time: 12/13/2024 6:55 AM Age: 54 years old Clinical indication: Chest pressure; C/O chest pain. Positive st elevation. ; Additional info: Stemi TECHNIQUE: Imaging protocol: Radiologic exam of the chest. Views: 1 view. COMPARISON: CR XR chest 1V portable [id number] 06/08/2024 5:09 PM FINDINGS: Lungs: There are left lower lobe infiltrates versus atelectasis. Suspected old calcified granuloma in the mid right lung Pleural spaces: Unremarkable. No pleural effusion. No pneumothorax. Heart/Mediastinum: Borderline cardiomegaly. Bones/joints: Unremarkable. XR/XR chest 1V portable [id number] IMPRESSION: 1. Borderline cardiomegaly. 2. Infiltrates versus atelectasis at the left lung base.
--- NOTE | 2024-12-13 07:01 | W.ED.CHESTPA ---
HPI - Chest Pain General: Stated Complaint: Chest Pain, Sob, Left arm & back pain Time Seen by Provider: 12/13/24 06:51 History of Present Illness: 54-year-old female presents emergency room with complaint of 7 of 10 chest pain radiating to her neck and her arm. Patient has a history of insulin-dependent diabetes mellitus she is a non-smoker she has had elevated blood pressure in the past is not currently taking any medication or does not take aspirin daily no history of coronary artery disease. She states she had chest pain that began 30 hours ago while she was working she states she was carrying a fan at the time and has been waxing and waning since then she still reporting pain that is 7 out of 10 she has not taken anything for it no previous cardiac history or evaluation. Initial EKG shows ST elevation [place] Associated symptoms: Deny abdominal pain, dyspnea or fever(s) Related Data Previous Rx's ?Medication ?Instructions ?Recorded ciprofloxacin HCl 500 mg tablet 500 mg PO BID #14 tabs 06/10/24 diabetic supplies, miscellan. #1 ea 06/10/24 insulin glargine 100 unit/mL (3 12 unit (0.12 mL) SUBCUT QPM #15 mL 06/10/24 mL) subcutaneous pen insulin lispro-aabc 100 unit/mL See Rx Instructions .Route 06/10/24 subcutaneous pen .COMPLEX #15 mL magnesium L-threonate 48 mg 48 mg PO DAILY #90 caps 06/10/24 magnesium (667 mg) capsule Allergies Allergy/AdvReac Type Severity Reaction Status Date / Time No Known Allergies Allergy Verified 06/08/24 14:04 Review of Systems Const: Denies: fever(s) or chills Card: Reports: chest pain Resp: Denies: dyspnea GI: Denies: abdominal pain : Denies: dysuria, urinary frequency or urinary urgency Musc: Denies: neck pain or back pain Skin/Breast: Denies: rash PFSH ED PFSH: Medical History DM type 2 (diabetes mellitus, type 2) Surgical History H/O: Physical Exam Const: ORIENTATION/CONSCIOUSNESS: Yes awake, Yes oriented to person, Yes oriented to place and Yes oriented to time HENMT: COMMON NORMALS: normocephalic, atraumatic and hearing grossly normal bilaterally HEAD & SCALP: normocephalic and atraumatic Resp: COMMON NORMALS: normal respiratory effort, No retractions, No use of accessory muscles and clear to auscultation bilaterally AUSCULTATION: clear to auscultation bilaterally Cardio: COMMON NORMALS: regular rate, regular rhythm and No murmurs present (Cardio) RATE: regular rate RHYTHM: regular rhythm GI: COMMON NORMALS: Soft to palpation and No hepatosplenomegaly present AUSCULTATION: Yes normoactive bowel sounds PALPATION: Yes Soft to palpation, No Tenderness to palpation present (GI), No Guarding due to palpation present (GI) and Yes No hepatosplenomegaly present Extremity: COMMON NORMALS: normal to inspection, capillary refill normal, no clubbing, cyanosis or edema, no calf tenderness and no pedal edema Neuro: SENSORIUM/ORIENTATION: Yes oriented to person, Yes oriented to place and Yes oriented to time Skin: COMMON NORMALS: no rashes or lesions noted GENERAL SKIN EXAM: no rashes or lesions noted MDM - Chest Pain Medical Decision Making Initial triage done by nursing staff EKG done presented to myself immediately after it was taken by the nurse. EKG shows acute ST elevation [place] a STEMI alert was called. Program Director/Music Director is already present in the emergency room we contacted Dr. Reece they are planning on taking the patient to cardiac catheterization lab all the appropriate medications and cares initiated for STEMI. Discussed the diagnosis with the patient she expressed understanding and is willing to proceed. Lab Data I reviewed the patient's lab results. XR interpretation done by ED provider, pending radiology final review EKG Data EKG 1: Interpretation: Initial EKG 12/13/2024 6:[address] elevation in 2 3 and aVF with T wave inversion. Acute ST elevation [place] noted rate of 104 sinus tachycardia MA interval 164 QTc 363 Discharge Plan Discharge Clinical Impression: Acute ST elevation myocardial infarction (STEMI) of inferior wall, Diabetes mellitus, Hypertension Condition: Stable Coding Level of Care Code ED Assistant Plant Controller for Xiao Solorzano
[2024-12-13] MEDS: clopidogrel 300 mg Tablet 600 MG PO (07:07)
[2024-12-13] MEDS: aspirin 325 mg Tablet PO (07:07)
[2024-12-13] MEDS: heparin 5,000 unit/mL INJ 1 mL 4000 UNIT IVP (07:08)
[2024-12-13 07:35] LABS: Troponin(5th) Baseline 807 ng/L (0-10)
--- NOTE | 2024-12-13 08:48 | PM.PROC ---
Procedure Note: Date of procedure: 12/13/24 Pre-procedure diagnosis: ST elevation in Post-procedure diagnosis: same Procedure: Left heart cath was performed: Left main: Normal LAD has 2 mid high-grade 80 to 90% stenosis Left circumflex has moderate 60 to 70% stenosis RCA is the culprit vessel which is 100% occluded in the midsegment. It has mid and distal stenosis PCI to mid and distal RCA with drug-eluting stent, balloon angioplasty to PDA for thrombotic occlusion. Excellent angiographic result with DOROTHY-3 flow was restored Left anterior descending artery mid lesions were treated with 2 drug-eluting stents postdilated with noncompliant balloon. LCx is a moderate lesion: We plan to optimize medical management and repeat stress test in 12 weeks to assess ischemic burden based upon that further plan will be advised. Plan: Patient has been loaded with 60 mg of Plavix in the ED. She has been given 325 mg of aspirin. Will continue dual antiplatelet therapy in the form of 75 mg of Plavix and 81 mg of aspirin for at least 1 year Will add beta-tesfaye and FRANKLIN inhibitor over next 24 hours depending upon her blood pressure IV fluid 100 mL/h for next 5 hours Echocardiogram will be obtained. To assess LV function Will request consult for medicine for management of diabetes. Coding Level of Care Code Acute Code for Xiao Solorzano
--- NOTE | 2024-12-13 08:52 | PM.HP ---
Providers/Chief Complaint Admitting Physician: Asher Arias MD Chief Complaint: Chest Pain, Sob, Left arm & back pain History of Present Illness Esthela Becker is a 54 year old female presented to the emergency department for off-and-on chest pain burning on since Friday. Twelve-lead EKG was consistent with ST elevation in the inferior leads. Patient was taken to the Chief Wellness Officer noted to have thrombotically occluded mid to distal RCA treated with 2 drug-eluting stent. Left coronary angiogram revealed to mid high-grade LAD lesion treated with 2 drug-eluting stents. She was also noted to have mid circumflex moderate 60 to 70% stenosis thought to be managed medically for now we will repeat stress test in 12 weeks on optimal medical management further plan will be advised then. Left ventriculography of the patient was suggestive of moderately depressed LV function 45% with LVEDP 28 mmHg which is moderately elevated. Patient tolerated procedure well and transferred to ICU for further management. Medications/Allergies Home Medications ?Medication ?Instructions ?Recorded ?Confirmed ?Last Taken ?Type insulin glargine 100 unit/mL (3 12 unit (0.12 mL) SUBCUT QPM #15 mL 06/10/24 12/13/24 Unknown Rx mL) subcutaneous pen insulin lispro-aabc 100 unit/mL See Rx Instructions .Route 06/10/24 12/13/24 Unknown Rx subcutaneous pen .COMPLEX #15 mL Allergies Allergy/AdvReac Type Severity Reaction Status Date / Time No Known Allergies Allergy Verified 06/08/24 14:04 PFSH Acute PFSH: Medical History DM type 2 (diabetes mellitus, type 2) Surgical History H/O: Vitals/I&O/Wt Last Vital Signs Pulse 103 H 12/13/24 06:51 Resp 12 12/13/24 06:51 BP 150/107 12/13/24 06:51 Pulse Ox 96 12/13/24 06:51 O2 Del Method Room Air 12/13/24 06:51 Weight last 48 hrs Weight 183 lb Physical Exam Const: OTHER: GENERAL: Patient is alert, awake and oriented x3. HEART: Regular S1 and S2. No murmur, rub or gallop. LUNGS: Clear to auscultate bilaterally. CENTRAL NERVOUS SYSTEM: Grossly nonfocal. EXTREMITIES: Lower extremities with out edema bilaterally. A&P Assessment and plan (1) Acute ST elevation myocardial infarction (STEMI) of inferior wall: (2) CHF (congestive heart failure): (3) Uncontrolled diabetes mellitus: Plan Patient is status post PCI x 2 mid and distal RCA which is the culprit vessel. LAD was also treated with 2 drug-eluting stent in the midsegment Left circumflex has moderate 60 to 70% stenosis thought to be managed with medication and repeat stress test in 12 weeks to assess ischemia burden further plan be advised then. Patient is transferred to ICU in stable condition. Continue IV fluid 100 mL/h for next 5 hours Continue aspirin and statin and Plavix Will add beta-tesfaye and FRANKLIN inhibitor over next 24 hours depending upon her blood pressure. Echocardiogram will be obtained. Patient will be enrolled in cardiac rehab upon discharge. Consult for medicine to manage blood sugar. Further plan advised as per progress the patient PDMP PDMP Reviewed: Not Reviewed Attestations Medical Necessity Statement*: Patient require continuation of hospitalization for above defined care. Coding Level of Care Code Acute Code for [facility] Diagnoses Acute ST elevation myocardial infarction (STEMI) of inferior wall I21.19 CHF (congestive heart failure) I50.9 Uncontrolled diabetes mellitus
--- NOTE | 2024-12-13 08:56 | ECG_ITS ---
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 Measurements Intervals [place] Rate: 88 P: 30 [place]: 183 QRS: -26 QRSD: 113 T: -44 QT: 412 QTc: 499 Interpretive Statements SINUS RHYTHM LOW QRS VOLTAGE IN PRECORDIAL LEADS [QRS DEFLECTION < 1.0 mV IN CHEST LEADS] POSSIBLE ANTERIOR MYOCARDIAL INFARCTION , OF INDETERMINATE AGE [30 ms Q WAVE IN V3/V4, OR R < 0.2 mV IN V4] INFERIOR MYOCARDIAL INFARCTION , PROBABLY RECENT [40+ ms Q WAVE AND/OR ST/T ABNORMALITY IN II/aVF] ACUTE AK Compared to ECG 12/13/2024 06:50:28 Sinus tachycardia no longer present Myocardial infarct finding still present Electronically Signed On 12-13-2024 15:19:45 CDT by Patience Rousseau M.D. [id number] [id number]
[2024-12-13] MEDS: sodium chloride 0.9% 1,000 ML 100 ML IV (10:21)
[2024-12-13 10:30] LABS: Basophils % 0.2 %; Eosinophils % 0.1 %; Hematocrit 37.4 % (36-47); Lymphocytes # 1.8 10^3/uL (0.8-4.8); Lymphocytes % 17.2 %; Mean Corpuscular Volume 88.2 fl (85-98); Mean Platelet Volume 8.9 fL (7.4-10.4); Monocytes # 0.7 10^3/uL (0.2-0.9); Monocytes % 6.8 %; Neutrophils # 7.79 10^3/uL (1.8-7.7); Neutrophils % 75.4 %; Nucleated Red Blood Cells % 0 %; Platelet Count 192 10^3/cmm (157-399); Red Blood Count 4.24 10^6/uL (3.85-5.65); Red Cell Distribution Width 11.9 % (12.1-15.1); White Blood Count 10.32 10^3/uL (3.29-11.43)
--- NOTE | 2024-12-13 10:52 | P.CONIM_ITS ---
Providers/Reason For Consult 2 Consulting Physician/Specialty*: Hospitalist Reason for Consult*: Diabetes Attending Physician: Asher Arias MD History of Present Illness History of Present Illness With history of diabetes presented to emergency room with 7/10 chest pain radiating to her neck and arm, with finding of STEMI in inferior leads, was assessed by cardiology, underwent emergent coronary artery catheterization with finding of thrombotically occluded distal RCA treated with 2 stents, as well as mid high-grade LAD lesion treated with 2 stents. Incidentally also seen 60-70% stenosis of circumflex artery with plans for further risk stratification after 12 weeks. LVEF noted depressed at 45%. Her prior A1c was 11.8 back in June of last year. She had discontinued taking her insulin which she states had caused her to gain weight. She states that her insurance did not approve any medications that she wanted to take like Ozempic. She is not currently on insulin or any oral medications for diabetes. 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 Chest x-ray on presentation also with infiltrates versus atelectasis in the left lung base with a linear area noted on imaging. She does report that she has been having cough, some dyspnea and fatigue over the weekend. Review of Systems 2 Const: Denies: fever(s), chills, body aches or malaise ENMT: Denies: throat pain Card: Reports: chest pain; Denies: edema, pre-syncope or dyspnea on exertion Resp: Reports: dyspnea and non-productive cough; Denies: productive cough, change in phlegm color or hemoptysis GI: Denies: abdominal pain, nausea, vomiting, diarrhea, constipation, hematochezia or melena : Denies: flank pain, urinary frequency or hematuria Musc: Reports: other (Residual pain in the R foot after a client stepped on it. Swelling isgone.); Denies: back pain, joint swelling or joint redness Skin/Breast: Denies: rash or new lesions Neuro: Denies: headache(s) or confusion Medications/Allergies Home Medications ?Medication ?Instructions ?Recorded ?Confirmed ?Last Taken ?Type insulin glargine 100 unit/mL (3 12 unit (0.12 mL) SUBC UT QPM #15 mL 06/10/24 12/13/24 Unknown Rx mL) subcutaneous pen insulin lispro-aabc 100 unit/mL See Rx Instructions .R oute 06/10/24 12/13/24 Unknown Rx subcutaneous pen .COMPLEX #15 mL Allergies Allergy/AdvReac Type Severity Reaction Status Date / Time No Known Allergies Allergy Verified 06/08/24 14:04 Current Medications Generic Name Dose Route Start Last Admin Trade Name Leonela PRN Reason Stop Dose Admin Aspirin 81 mg 12/13/24 09:00 12/13/24 10:16 Aspirin 81 Mg Ec Tablet PO Not Given DAILY JUAN Clopidogrel Bisulfate 75 mg 12/13/24 09:00 12/13/24 10:16 Clopidogrel 75 Mg Tablet PO Not Given DAILY JUAN Sodium Chloride 1,000 mls @ 100 mls/hr 12/13/24 08:45 12/13/24 10:21 Sodium Chloride 0.9% IV 100 mls/hr .Q10H JUAN Administration PFSH Acute 2 PFSH: Medical History DM type 2 (diabetes mellitus, type 2) Surgical History H/O: Vitals/I&O/Wt Last Vital Signs Temp 98.3 F 12/13/24 09:15 Pulse 89 12/13/24 10:30 Resp 22 H 12/13/24 10:30 BP 108/84 12/13/24 10:30 Pulse Ox 97 12/13/24 10:30 O2 Del Method Nasal Cannula 12/13/24 10:07 O2 Flow Rate 2 12/13/24 10:07 Weight last 48 hrs Weight 84.5 kg Weight 83.007 kg Physical Exam 2 Narrative: Accompanied by her son Const: COMMON NORMALS: patient oriented x3 and alert GENERAL APPEARANCE: c ooperative ORIENTATION/CONSCIOUSNESS: Yes awake HENMT: COMMON NORMALS: oropharynx normal Neck/C-Spine: COMMON NORMALS: no JVD Resp: COMMON NORMALS: normal respiratory effort and clear to auscultation bilaterally AUSCULTATION: clear to auscultation bilaterally Cardio: COMMON NORMALS: no JVD, regular rhythm, S1 normal heart sound present, S2 normal heart sound present and No murmurs present (Cardio) RHYTHM: regular rhythm HEART SOUNDS: S1 normal heart sound present and S2 normal heart sound present GI: COMMON NORMALS: Normal to inspection, nondistended, normoactive bowel sounds present, Soft to palpation and non-tender PALPATION: Yes Soft to palpation Extremity: COMMON NORMALS: no joint enlargement and no pedal edema N ARRATIVE EXTREMITY EXAM: R wrist access site OTHER: R foot without any swelling. Neuro: COMMON NORMALS: patient oriented x3 and moves all extremities S ENSORIUM/ORIENTATION: Yes alert Skin: COMMON NORMALS: no rashes or lesions noted GENERAL SKIN EXAM: no rashes or lesions noted Data 12/13/24 10:23 A&P Assessment and plan (1) Acute ST elevation myocardial infarction (STEMI) of inferior wall: Per cardiology, status post cholangiogram with placement of 4 stents, RCA and LAD, additional lesions noted in circumflex with plans for further risk stratification after about 12 weeks. Continue cardiac medications with antiplatelet, statin. Discussed with her needs optimization of diabetes control including due to cardiovascular risks including risk of heart attack and stroke. Monitor on telemetry with risk of reperfusion injury, arrhythmia. Continue postcatheterization care, no issues with right wrist access site. Reviewed vitals, CBC, D-dimer, CMP, troponin, EKG, chest x-ray, ER provider note, discussed with ER provider, discussed with business travel consultant. (2) Diabetes mellitus: Currently not taking any insulin or oral hypoglycemic for uncontrolled diabetes. Previously A1c 11.8 back in June 2024. At that time was started on insulin, however, had discontinued it due to weight gain. She states that her insurance had not covered any of the medications she wanted to take like Ozempic. She also needs to set up with a primary provider. Requesting case management consultation. Discussed with her and her son risks of continued untreated diabetes including cardiovascular risks, risks of damage to her eyes, kidneys, risk of severe infection among others, and they acknowledge understanding and intends to pursue treatment. Added sliding scale insulin, monitor blood glucose. Will add Lantus. As per discussion with her oral hypoglycemics may be considered as an adjunctive treatment, however, with untreated diabetes, prior A1c 11.8, she is in need of insulin treatment as a primary modality. Recheck A1c. Case management consultation for assistance with setting up with primary provider as well as assistance with medications. Consistent carbohydrate diet. (3) Pneumonia: Noted area of infiltrate versus atelectasis in left lower lung, she does report symptoms over the weekend with cough, dyspnea, pleuritic pain. Added incentive spirometer, but with suspicion for possible pneumonia as per discussion with her, empirically treat with ceftriaxone, doxycycline. Discussed with her also obtaining D-dimer, reviewed, normal. Check flu/COVID/RSV swab. 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 Some residual pain is still there. PDMP PDMP Reviewed: Not Reviewed Consult Attestations 2 Medical Necessity Statement: Hospitalization necessary for assessment and management following STEMI. and High MDM includes amount and/or complexity of data reviewed/ordered [ previous or external records, resulted lab(s)/test(s), ordered lab(s)/test(s) and other healthcare professional discussion] as documented Diagnoses Acute ST elevation myocardial infarction (STEMI) of inferior wall I21.19 Diabetes mellitus E11.9 Pneumonia J18.9
[2024-12-13 10:53] LABS: D Dimer 0.28 ug/mLFEU (0-0.59)
[2024-12-13 11:04] LABS: Troponin 5 2HR 2258 ng/L (0-10); Troponin 5 2HR Delta 1451 ABS# (0-10)
[2024-12-13 11:05] LABS: Alanine Aminotransferase 25 U/L (0-33); Albumin Level 3.4 g/dL (3.5-5.2); Alkaline Phosphatase 179 U/L (35-105); Anion Gap 16.7 (5-19); Aspartate Amino Transferase 65 U/L (0-32); Blood Urea Nitrogen 10 mg/dL (6-20); Calcium 8.4 mg/dL (8.5-10.5); Carbon Dioxide 20 mmol/L (22-29); Chloride 101 mmol/L (98-107); Creatinine Clr Calc Pharmacy 125.5096; Globulin 2.9 g/dL (1.3-4.6); Glomerular Filtration Rate 129.1 mL/min (90-130); Glucose 296 mg/dL (65-115); Osmolality Calculated 288 mOsm/kg (285-295); Potassium 3.7 mmol/L (3.5-5.1); Sodium 134 mmol/L (136-145); Total Bilirubin 0.7 mg/dL (0.15-1.2); Total Protein 6.3 g/dL (6.6-8.7)
[2024-12-13 11:17] LABS: Estmated Average Glucose 309; Hemoglobin A1C 12.4 % (4.0-6.0)
[2024-12-13] MEDS: cefTRIAXone 1,000 mg SDV 1000 MG IVP (11:29)
[2024-12-13] MEDS: doxycycline 100 MG in sodium chloride 0.9% (plus) 100 ML IV ×2 (11:32→22:59)
[2024-12-13] MEDS: HYDROcodone-acetaminophen 5-325 mg Tablet 1 TAB PO (11:46)
--- NOTE | 2024-12-13 11:51 | USCV_ITS ---
Esthela Becker Age: 54 Gender: F : 1970 Exam Date: 12/13/2024 13:08 Ordering Phys: Nirmala Dukes Technologist: Exam Location: [facility] – [place] Indication: nstemi BP: 116 / 87 HR: 112 Rhythm: Sinus Technical Quality: Adequate MEASUREMENTS (Male / Female) Normal Values 2D ECHO LV Diastolic Diameter PLAX 3.9 cm 4.2 - 5.9 / 3.9 - 5.3 cm IVS Diastolic Thickness 1.2 cm 0.6 - 1.0 / 0.6 - 0.9 cm IVS Systolic Thickness 1.7 cm LVPW Diastolic Thickness 1.5 cm 0.6 - 1.0 / 0.6 - 0.9 cm LVPW Systolic Thickness 1.7 cm LVOT Diameter 2.0 cm LV Ejection Fraction 2D Teich 65.5 % LV Ejection Fraction MOD 4C 59.3 % LV Ejection Fraction MOD 2C 57.2 % LV Ejection Fraction 2C AL 58.7 % LA Diameter 2.8 cm RA Systolic Volume 4C AL 27.1 ml RA Systolic Volume 4C MOD 24.7 ml Aorta at Sinotubular Diameter 2.8 cm IVC Diameter 1.6 cm M-MODE LA Ao Ratio MM 1.1 AV Cusp Separation MM 2.2 cm DOPPLER AV Peak Velocity 145.0 cm/s LVOT Peak Velocity 86.0 cm/s AV Area Cont Eq vti 2.6 cm squared AV Area Cont Eq pk 1.9 cm squared MV Peak Velocity 139.3 cm/s MV Area PHT 4.5 cm squared Mitral E to A Ratio 0.8 TV Peak Velocity 195.5 cm/s TR Peak Velocity 242.0 cm/s TR Peak Gradient 23.4 mmHg TV Peak E Velocity 82.0 cm/s PV Peak Velocity 75.0 cm/s FINDINGS Left Ventricle Normal left ventricular size, systolic function and wall thickness, with inferior wall hypokinesis. Left ventricular ejection fraction is estimated at 55 %. Grade I/IV diastolic dysfunction (abnormal relaxation filling pattern), normal to mildly elevated filling pressures. Right Ventricle The right ventricle is normal in size and function. Right Atrium The right atrium is normal in size. Left Atrium Mildly increased left atrial size. Mitral Valve Thickened mitral valve. No mitral valve stenosis. Mild-moderate mitral valve regurgitation. Aortic Valve Structurally normal aortic valve without significant sclerosis or stenosis. There is no aortic regurgitation. Tricuspid Valve Structurally normal tricuspid valve without significant stenosis or regurgitation. Pulmonary artery systolic pressure is normal. Pulmonic Valve Structurally normal pulmonic valve without significant stenosis. There is no pulmonic regurgitation. Pericardium Normal pericardium without effusion. Aorta Normal ascending aorta dimension. IVC The inferior vena cava appears normal. CONCLUSIONS Normal left ventricular size, systolic function and wall thickness, with inferior wall hypokinesis. Left ventricular ejection fraction is estimated at 55 %. Grade I/IV diastolic dysfunction (abnormal relaxation filling pattern), normal to mildly elevated filling pressures. Mildly increased left atrial size. Thickened mitral valve. No mitral valve stenosis. Mild-moderate mitral valve regurgitation. There is no pericardial effusion. Right atrial pressure is around 5 mm of mercury. Asher Arias MD (Electronically Signed) Final Date: 14 Dec 2024 11:01 S
[2024-12-13] MEDS: ondansetron 2 mg/ML SDV 2 mL 4 MG IVP ×2 (12:14→17:59)
[2024-12-13] MEDS: insulin lispro 100 unit/1 mL SUBCUT ×3 (12:16→21:19)
--- NOTE | 2024-12-13 12:16 | ECG_ITS ---
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 Measurements Intervals [place] Rate: 90 P: 19 [place]: 176 QRS: -26 QRSD: 102 T: -38 QT: 384 QTc: 472 Interpretive Statements SINUS RHYTHM LOW QRS VOLTAGE IN PRECORDIAL LEADS [QRS DEFLECTION < 1.0 mV IN CHEST LEADS] POSSIBLE ANTERIOR MYOCARDIAL INFARCTION , OF INDETERMINATE AGE [30 ms Q WAVE IN V3/V4, OR R < 0.2 mV IN V4] INFERIOR MYOCARDIAL INFARCTION , PROBABLY RECENT [40+ ms Q WAVE AND/OR ST/T ABNORMALITY IN II/aVF] ACUTE NM Compared to ECG 12/13/2024 09:24:35 No significant changes Electronically Signed On 12-13-2024 15:18:17 CDT by Patience Rousseau M.D. [id number]
[2024-12-13] MEDS: insulin glargine 100 units/1 mL 10 UNIT SUBCUT (12:20)
[2024-12-13] MEDS: pantoprazole DR 40 mg Tablet PO (12:20)
[2024-12-13 12:44] LABS: Influenza A NEGATIVE (Negative); Influenza B NEGATIVE (Negative); Respiratory Syncytial Virus Ce NEGATIVE (Negative); SARS-CoV-2 PCR NEGATIVE (Negative)
[2024-12-13 14:51] LABS: Troponin 5 6HR 1351 ng/L (0-10); Troponin 5 6HR Delta 544 ng/L (0-12)
--- NOTE | 2024-12-13 15:07 | PC.NURSE ---
Received patient from microbiological lab technician staff at 0858. Patient is a little lethargic, but oriented to person, place, time, and situation. BP 106/80, HR: 90, RR: 22, SPO2: 93% on room air, Temp:98.3. ST elevation present in leads 2, 3, and avf. This was present upon admission before PCI. 17mL in TR band.
[2024-12-13 16:52] LABS: Glucose Point of Care 266 mg/dL (70-110)
[2024-12-13] MEDS: acetaminophen 325 mg Tablet 650 MG PO (18:04)
--- NOTE | 2024-12-13 18:23 | PC.NURSE ---
Shift summary: uneventful shift. 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 Since then TR band has been removed without incident. Up to a chair for meals. Has been able to void since PCI. Started on subq insulin.
[2024-12-13] MEDS: atorvastatin 40 mg Tablet 80 MG PO (21:00)
[2024-12-13 21:16] LABS: Glucose Point of Care 372 mg/dL (70-110)
[2024-12-13] MEDS: metoprolol succinate ER (24 HR) 25 mg Tablet PO (21:20)
[2024-12-14] VITALS (52 sets, daily range): BP systolic 95–129; BP diastolic 64–89; PULSE 92–105; RESP 16–29; TEMP 36.8–36.9; O2SAT 88–95
[2024-12-14 04:39] LABS: Basophils % 0.2 %; Lymphocytes # 1.4 10^3/uL (0.8-4.8); Lymphocytes % 12.5 %; Mean Corpuscular HGB Conc 34.2 g/dL (30-55); Mean Corpuscular Hemoglobin 30.2 pg (27-33); Mean Corpuscular Volume 88.4 fl (85-98); Mean Platelet Volume 9.4 fL (7.4-10.4); Monocytes # 1.3 10^3/uL (0.2-0.9); Monocytes % 12.2 %; Neutrophils # 8.16 10^3/uL (1.8-7.7); Neutrophils % 74.6 %; Nucleated Red Blood Cells % 0 %; Platelet Count 211 10^3/cmm (157-399); Red Cell Distribution Width 11.9 % (12.1-15.1); White Blood Count 10.94 10^3/uL (3.29-11.43)
[2024-12-14 04:54] LABS: Blood Urea Nitrogen 13 mg/dL (6-20); Calcium 9.1 mg/dL (8.5-10.5); Carbon Dioxide 20 mmol/L (22-29); Chloride 101 mmol/L (98-107); Creatinine Clr Calc Pharmacy 125.5096; Glomerular Filtration Rate 129.1 mL/min (90-130); Glucose 306 mg/dL (65-115); Osmolality Calculated 290 mOsm/kg (285-295); Sodium 134 mmol/L (136-145)
[2024-12-14 04:58] LABS: Anion Gap 17.2 (5-19); Potassium 4.2 mmol/L (3.5-5.1)
[2024-12-14 07:23] LABS: Glucose Point of Care 319 mg/dL (70-110)
[2024-12-14] MEDS: insulin lispro 100 unit/1 mL SUBCUT ×2 (08:21→12:43)
[2024-12-14] MEDS: clopidogrel 75 mg Tablet PO (08:22)
[2024-12-14] MEDS: aspirin 81 mg EC Tablet PO (08:22)
[2024-12-14] MEDS: pantoprazole DR 40 mg Tablet PO (08:22)
[2024-12-14] MEDS: metoprolol succinate ER (24 HR) 25 mg Tablet PO (08:23)
--- NOTE | 2024-12-14 09:23 | P.PN_ITS ---
Subjective 2 Subjective: Feeling better. Vitals/I&O/Wt Last Vital Signs Temp 98.3 F 12/13/24 09:15 Pulse 105 H 12/14/24 06:00 Resp 22 H 12/13/24 10:30 BP 108/84 12/13/24 10:30 Pulse Ox 97 12/13/24 10:30 O2 Del Method Nasal Cannula 12/13/24 10:07 O2 Flow Rate 2 12/13/24 10:07 12/13/24 12/14/24 12/14/24 22:59 06:59 14:59 Intake Total 895 / 1095 250 / 1345 360 / 360 Balance 895 / 695 250 / 945 360 / 360 Weight last 48 hrs Weight 84.5 kg Weight 83.007 kg Physical Exam 2 Narrative: Accompanied by her son Const: COMMON NORMALS: patient oriented x3 and alert GENERAL APPEARANCE: c ooperative ORIENTATION/CONSCIOUSNESS: Yes awake HENMT: COMMON NORMALS: oropharynx normal Neck/C-Spine: COMMON NORMALS: no JVD Resp: COMMON NORMALS: normal respiratory effort and clear to auscultation bilaterally AUSCULTATION: clear to auscultation bilaterally Cardio: COMMON NORMALS: no JVD, regular rhythm, S1 normal heart sound present, S2 normal heart sound present and No murmurs present (Cardio) RHYTHM: regular rhythm HEART SOUNDS: S1 normal heart sound present and S2 normal heart sound present GI: COMMON NORMALS: Normal to inspection, nondistended, normoactive bowel sounds present, Soft to palpation and non-tender PALPATION: Yes Soft to palpation Extremity: COMMON NORMALS: no joint enlargement and no pedal edema N ARRATIVE EXTREMITY EXAM: R wrist access site OTHER: R foot without any swelling. Neuro: COMMON NORMALS: patient oriented x3 and moves all extremities S ENSORIUM/ORIENTATION: Yes alert Skin: COMMON NORMALS: no rashes or lesions noted GENERAL SKIN EXAM: no rashes or lesions noted Data 12/14/24 04:06 12/14/24 04:06 A&P Assessment and plan (1) Acute ST elevation myocardial infarction (STEMI) of inferior wall: Per cardiology. Reinforced with her significant importance of continuing cardiac medications especially the antiplatelet medication due to risk of stent thrombosis, with the risk of myocardial infarction with disabling and/or life- threatening outcomes. Discussed importance of continued optimization of diabetes control and follow-up with primary provider. Discussed with her needs optimization of diabetes control including due to cardiovascular risks including risk of heart attack and stroke. (2) Diabetes mellitus: Discussed with her increased A1c up to 12.4%. Discussed need for continued optimization of diabetes control, discussed restarting use of insulin at home. Requesting additional education for her. Giving her refill of insulin as well. Reinforced importance of diabetes control with risk of significant complications including retinopathy, nephropathy, but also cardiovascular disease including heart attack as she has already had on presentation. She verbalized understanding and agreement. Importance with follow-up with primary care provider. Discussed with ed case manager. Reviewed vitals, CBC, CMP, cardiology note, discussed with engraver hand hard metals. Consistent carbohydrate diet. (3) Pneumonia: Completed Cipro course with cefdinir and doxycycline. Follow-up with primary provider. Noted area of infiltrate versus atelectasis in left lower lung, she does report symptoms over the weekend with cough, dyspnea, pleuritic pain. Added incentive spirometer, but with suspicion for possible pneumonia as per discussion with her, empirically treat with ceftriaxone, doxycycline. Discussed with her also obtaining D-dimer, reviewed, normal. Reviewed flu/COVID/RSV swab. 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 Some residual pain is still there. PDMP PDMP Reviewed: Not Reviewed Attestations 2 Medical Necessity Statement*: Returning home today. and High MDM includes amount and/or complexity of data reviewed/ordered [ previous or external records, resulted lab(s)/test(s), ordered lab(s)/test(s) and other healthcare professional discussion] as documented Diagnoses Acute ST elevation myocardial infarction (STEMI) of inferior wall I21.19 Diabetes mellitus E11.9 Pneumonia J18.9
--- NOTE | 2024-12-14 09:23 | P.PN_ITS ---
Subjective 2 Subjective: She is sitting up in the chair this morning having breakfast. No chest pain overnight or this morning. Echocardiogram pending read. Heart rate ranging 90 to 105 bpm with soft blood pressures [id number]. Continue metoprolol succinate 25 mg daily. Renal function normal. No complications right radial cath site. Vitals/I&O/Wt Last Vital Signs Temp 98.3 F 12/13/24 09:15 Pulse 105 H 12/14/24 06:00 Resp 22 H 12/13/24 10:30 BP 108/84 12/13/24 10:30 Pulse Ox 97 12/13/24 10:30 O2 Del Method Nasal Cannula 12/13/24 10:07 O2 Flow Rate 2 12/13/24 10:07 12/13/24 12/14/24 12/14/24 22:59 06:59 14:59 Intake Total 895 / 1345 250 / 1345 360 / 360 Balance 895 / 945 250 / 945 360 / 360 Weight last 48 hrs Weight 186 lb 4.65 oz Weight 183 lb Physical Exam 2 Const: COMMON NORMALS: no acute distress and patient oriented x3 GENERAL APPEARANCE: cooperative ORIENTATION/CONSCIOUSNESS: Yes awake, Yes oriented to person, Yes oriented to place and Yes oriented to time Chest: COMMONS NORMALS: normal inspection of the chest and normal palpation of entire chest wall CHEST: Yes Symmetrical chest wall rise Resp: COMMON NORMALS: normal respiratory effort, No retractions, No use of accessory muscles and clear to auscultation bilaterally AUSCULTATION: clear to auscultation bilaterally Cardio: COMMON NORMALS: regular rate, regular rhythm, S1 normal heart sound present, S2 normal heart sound present, No gallops present (Cardio), No clicks present (Cardio), No murmurs present (Cardio) and No rub (Cardio) RATE: r egular rate RHYTHM: regular rhythm HEART SOUNDS: S1 normal heart sound present and S2 normal heart sound present PERIPHERAL PULSES: radial pulses present positive right 2+ and femoral pulses present positive right 2+ Neuro: COMMON NORMALS: patient oriented x3 and moves all extremities S ENSORIUM/ORIENTATION: Yes oriented to person, Yes oriented to place and Yes oriented to time Skin: WOUNDS: Yes surgical site (no hematoma palpable) Details: no odor Data 12/14/24 04:06 12/14/24 04:06 A&P Assessment and plan (1) Acute ST elevation myocardial infarction (STEMI) of inferior wall: (2) Hypertension: (3) CHF (congestive heart failure): (4) Uncontrolled diabetes mellitus: (5) Dehydration: Plan She is status post stent to the mid to distal RCA and balloon of the PDA. She will be referred to endocrinology for uncontrolled diabetes. Continue atorvastatin, aspirin, Plavix, metoprolol succinate. PDMP PDMP Reviewed: Not Reviewed Attestations 2 Medical Necessity Statement*: Post STEMI care Coding Level of Care Code Acute Code for [facility] Diagnoses Acute ST elevation myocardial infarction (STEMI) of inferior wall I21.19 Hypertension I10 CHF (congestive heart failure) I50.9 Uncontrolled diabetes mellitus Dehydration E86.0
[2024-12-14] MEDS: insulin glargine 100 units/1 mL 10 UNIT SUBCUT (09:50)
--- NOTE | 2024-12-14 11:28 | PM.DCS ---
Discharge Providers Date of Admission: 12/13/24 09:03 Date of Discharge: December 14, 2024 Attending Provider at Admission: Asher Arias MD Attending Provider at Discharge: Asher Arias MD Consults: Dr Easley Diagnoses at Discharge Discharge Diagnosis (1) Acute ST elevation myocardial infarction (STEMI) of inferior wall: Status: Acute (2) Hypertension: Status: Acute (3) CHF (congestive heart failure): Status: Acute (4) Uncontrolled diabetes mellitus: Status: Acute (5) Dehydration: Status: Acute Reason for Visit Reason for Visit: Chest Pain, Sob, Left arm & back pain Brief History: Esthela Becker is a 54 year old female presented to the emergency department for off-and-on chest pain burning on since Friday. Twelve-lead EKG was consistent with ST elevation in the inferior leads. Patient was taken to the Energy Risk Management Analyst noted to have thrombotically occluded mid to distal RCA treated with 2 drug-eluting stent. Left coronary angiogram revealed to mid high-grade LAD lesion treated with 2 drug-eluting stents. She was also noted to have mid circumflex moderate 60 to 70% stenosis thought to be managed medically for now we will repeat stress test in 12 weeks on optimal medical management further plan will be advised then. Left ventriculography of the patient was suggestive of moderately depressed LV function 45% with LVEDP 28 mmHg which is moderately elevated. Patient tolerated procedure well and transferred to ICU for further management. Hospital Course Hospital Course She has done well overnight. Echocardiogram showed normal LV function. No complications with right radial cath site. She has tolerated metoprolol succinate 12.5mg daily, blood pressures on the soft side. Will plan to discharge home today, with atoravastatin, aspirin, Plavix and metoprolol. She has a left circumflex stenosis which will be medically managed for now, plan for stress test to evaluate for ischemia once she has recovered from this STEMI event. No chest pain overnight or this morning. Will refer patient to Dr Jaeger for diabetes management. Follow up with cardiology clinic in 7-10 days. No lifting over 5 pounds with right arm for the next 4 days. May return to work on Friday. Physical Exam Const: COMMON NORMALS: no acute distress and patient oriented x3 GENERAL APPEARANCE: cooperative ORIENTATION/CONSCIOUSNESS: Yes awake, Yes oriented to person, Yes oriented to place and Yes oriented to time Chest: COMMONS NORMALS: normal inspection of the chest and normal palpation of entire chest wall CHEST: Yes Symmetrical chest wall rise Resp: COMMON NORMALS: normal respiratory effort, No retractions, No use of accessory muscles and clear to auscultation bilaterally AUSCULTATION: clear to auscultation bilaterally Cardio: COMMON NORMALS: regular rate, regular rhythm, S1 normal heart sound present, S2 normal heart sound present, No gallops present (Cardio), No clicks present (Cardio), No murmurs present (Cardio) and No rub (Cardio) RATE: regular rate RHYTHM: regular rhythm HEART SOUNDS: S1 normal heart sound present and S2 normal heart sound present PERIPHERAL PULSES: radial pulses present positive right 2+ and femoral pulses present positive right 2+ Neuro: COMMON NORMALS: patient oriented x3 and moves all extremities SENSORIUM/ORIENTATION: Yes oriented to person, Yes oriented to place and Yes oriented to time Skin: WOUNDS: Yes surgical site (no hematoma palpable) Details: no odor Discharge Data Studies Completed and Pending Completed Studies During Hospitalization Category Date Time Status XR chest 1V portable [id number] Stat Exams 12/13/24 06:56 Completed CV. echo complete* [id number] Routine Ultrasound 12/13/24 11:51 Completed Pending at discharge Category Date Time Status BIOMEDICAL ANALYTICAL SCIENTIST request for service Stat Exams 12/13/24 07:07 Taken Radiology Impressions Chest X-Ray 12/13/24 06:56 IMPRESSION: 1. Borderline cardiomegaly. 2. Infiltrates versus atelectasis at the left lung base. Laboratory Results WBC 10.94 10^3/uL (3.29-11.43) 12/14/24 04:06 RBC 4.30 10^6/uL (3.85-5.65) 12/14/24 04:06 Hgb 13.00 g/dL (11.27-16.99) 12/14/24 04:06 Hct 38.0 % (36-47) 12/14/24 04:06 MCV 88.4 fl (85-98) 12/14/24 04:06 MCH 30.2 pg (27-33) 12/14/24 04:06 MCHC 34.2 g/dL (30-55) 12/14/24 04:06 RDW 11.9 % (12.1-15.1) L 12/14/24 04:06 Plt Count 211 10^3/cmm (157-399) 12/14/24 04:06 MPV 9.4 fL (7.4-10.4) 12/14/24 04:06 Neut % (Auto) 74.6 % 12/14/24 04:06 Lymph % (Auto) 12.5 % 12/14/24 04:06 [place] % (Auto) 12.2 % 12/14/24 04:06 Eos % (Auto) 0.0 % 12/14/24 04:06 Baso % (Auto) 0.2 % 12/14/24 04:06 Neut # (Auto) 8.16 10^3/uL (1.8-7.7) H 12/14/24 04:06 Lymph # (Auto) 1.4 10^3/uL (0.8-4.8) 12/14/24 04:06 [place] # (Auto) 1.3 10^3/uL (0.2-0.9) H 12/14/24 04:06 Eos # (Auto) 0.0 10^3/uL (0.0-0.8) 12/14/24 04:06 Baso # (Auto) 0.0 10^3/uL (0.0-0.1) 12/14/24 04:06 Nucleated RBC % (auto) 0 % 12/14/24 04:06 Nucleated RBCs # 0.0 /100WBC 12/14/24 04:06 D-Dimer 0.28 ug/mLFEU (0-0.59) 12/13/24 07:02 Sodium 134 mmol/L (136-145) L 12/14/24 04:06 Potassium 4.2 mmol/L (3.5-5.1) 12/14/24 04:06 Chloride 101 mmol/L (98-107) 12/14/24 04:06 Carbon Dioxide 20 mmol/L (22-29) L 12/14/24 04:06 Anion Gap 17.2 (5-19) 12/14/24 04:06 BUN 13 mg/dL (6-20) 12/14/24 04:06 Creatinine 0.5 mg/dL (0.5-0.9) 12/14/24 04:06 GFR Calculation 129.1 mL/min (90-130) 12/14/24 04:06 Glucose 306 mg/dL (65-115) H 12/14/24 04:06 POC Glucose 319 mg/dL (70-110) H 12/14/24 07:11 Estimat Average Glucose 309 12/13/24 10:23 Hemoglobin A1c 12.4 % (4.0-6.0) H 12/13/24 10:23 Calculated Osmolality 290 mOsm/kg (285-295) 12/14/24 04:06 Calcium 9.1 mg/dL (8.5-10.5) 12/14/24 04:06 Total Bilirubin 0.7 mg/dL (0.15-1.2) 12/13/24 10:23 AST 65 U/L (0-32) H 12/13/24 10:23 ALT 25 U/L (0-33) 12/13/24 10:23 Alkaline Phosphatase 179 U/L (35-105) H 12/13/24 10:23 Troponin T Baseline 807 ng/L (0-10) H* 12/13/24 07:02 Troponin T 120 Minute 2258 ng/L (0-10) H 12/13/24 10:23 Delta Troponin T 1451 ABS# (0-10) H* 12/13/24 10:23 Troponin T Hi Sens 6Hr 1351 ng/L (0-10) H 12/13/24 14:20 Troponin T Hi Sens 6Hr Delta 544 ng/L (0-12) H* 12/13/24 14:20 Total Protein 6.3 g/dL (6.6-8.7) L 12/13/24 10:23 Albumin 3.4 g/dL (3.5-5.2) L 12/13/24 10:23 Globulin 2.9 g/dL (1.3-4.6) 12/13/24 10:23 Influenza A (PCR) Negative (Negative) 12/13/24 11:45 Influenza Type B (PCR) Negative (Negative) 12/13/24 11:45 RSV (PCR) Negative (Negative) 12/13/24 11:45 SARS-CoV-2 (PCR) Negative (Negative) 12/13/24 11:45 Vitals Last Vital Signs Temp 98.2 F 12/14/24 07:20 Pulse 97 12/14/24 10:55 Resp 16 12/14/24 10:55 BP 107/85 12/14/24 10:55 Pulse Ox 90 12/14/24 10:50 O2 Del Method Room Air 12/14/24 07:20 O2 Flow Rate 2 12/13/24 10:07 Discharge Plan Discharge Patient Disposition: Home Condition: Stable Prescriptions: New aspirin 81 mg Tablet,Delayed Release (Dr/Ec) 81 mg PO DAILY Qty: 90 3RF atorvastatin 40 mg Tablet 80 mg PO BEDTIME Qty: 180 1RF cefdinir 300 mg capsule 300 mg PO BID 4 Days Qty: 8 0RF clopidogrel 75 mg Tablet 75 mg PO DAILY Qty: 90 3RF pantoprazole 40 mg Tablet,Delayed Release (Dr/Ec) 40 mg PO DAILY Qty: 30 0RF metoprolol succinate 25 mg Tablet Extended Release 24 Hr 12.5 mg PO DAILY Qty: 90 3RF doxycycline hyclate 100 mg capsule 100 mg PO BID 4 Days Qty: 8 0RF Continued insulin glargine 100 unit/mL (3 mL) insulin pen 12 unit SUBCUT QPM Qty: 15 3RF insulin lispro-aabc 100 unit/mL insulin pen See Rx Instructions .ROUTE .COMPLEX Qty: 15 3RF Rx Instructions: Check before lunch Glucose: 141-180 - 2 units 181-220 - 3 221-260 - 4 261-300 - 5 301-350 - 6 351-400 - 7 >400 - 8 units Discharge Orders: Discharge Order (Routine); Ordered 12/14/24 Ordered By: Burt Easley Referrals: [facility] [Other] - 12/21/24 3:15 pm Referral Note: Dex Gramajo MD [Physician, Endocrinology] Discharge Diet: Advance as tolerated, Cardiac and Diabetic Discharge Activity: Increase activity as tolerated Patient Instructions: Doxycycline (By mouth), Cefdinir (By mouth), Hypertension, Heart Failure (DC), Coronary Angioplasty (DC), Heart Healthy Diet (DC), Bacterial Pneumonia (GEN), Diabetes and Nutrition (GEN), Diabetes and Exercise (GEN), Opioid Safety Activity Restrictions/Additional Instructions: May return to work on Friday the . Follow-up with your primary provider for reassessment of uncontrolled diabetes. Continues on hold, target blood glucose 100-150 and have your primary doctor track your A1c progress targeting A1c over 7-8. Avoid low blood sugars. Cut Lantus dose in half if your sugar anytime during the day is less than 70. If your sugar is less than 70 and especially less than or equal to 55, hold any upcoming insulin, take sugary snacks, recheck your blood glucose in 15 minutes to make sure it is rising. If it is not, seek medical attention immediately. Low blood glucose is dangerous and can lead to risk of stroke and other complications. In case your blood sugars are persistently elevated above 150, you could gradually increase Lantus dose until blood sugars are coming into range without any values below 100. Do not increase by more than 1-2 units at a time. Follow-up with your primary doctor for continued optimization of diabetes control. As well as to monitor for any diabetic complications including neuropathy, eyes for retinopathy, kidneys for nephropathy. Untreated diabetes also risks difficult to heal or severe life-threatening infections as well as risk of stroke, heart attack. Follow-up with your primary doctor to also discuss regarding weight loss strategies. Completed to her records for pneumonia. Continue incentive spirometer for possible atelectasis in left lower lung. Follow-up with your primary doctor for reassessment and consideration of repeat imaging. Follow-up with your primary provider regarding porcelain gallbladder incidentally noted on past imaging. Discharge Attestations Time Spent in Discharge Care*: less than 30 min Quality Metrics Clinical Quality Measures [ Acute Myocardial Infaction { Clinical Trial Participant: No; Contraindication to aspirin: None; Aspirin prescribed; Contraindication to statin: None; Statin prescribed; Contraindication to PCI: None; PCI performed;}] Coding Level of Care Code Acute Code for [facility] Diagnoses Acute ST elevation myocardial infarction (STEMI) of inferior wall I21.19 Hypertension I10 CHF (congestive heart failure) I50.9 Uncontrolled diabetes mellitus Dehydration E86.0
[2024-12-14] MEDS: doxycycline 100 MG in sodium chloride 0.9% (plus) 100 ML IV (12:00)
[2024-12-14] MEDS: acetaminophen 325 mg Tablet 650 MG PO (12:03)
[2024-12-14] MEDS: cefTRIAXone 1,000 mg SDV 1000 MG IVP (12:04)
[2024-12-14 12:36] LABS: Glucose Point of Care 336 mg/dL (70-110)
--- NOTE | 2024-12-14 14:07 | PC.NURSE ---
Discharged - Bilateral IVs removed. Medications delivered to bedside. Education provided on upcoming appointments, new medications, post PCI activity restrictions. Patient signature form signed.
[2024-12-15 11:15] LABS: Glucose Point of Care 294 mg/dL (70-110)
== END 2024-12-14 13:30 | disposition home or self-care (01) | DRG 321 ==
LOC: ER 07:16 → CCL 07:23 → ICU 09:04
PROVIDERS: Internal Medicine; Admitting Provider Internal Medicine Cardiovascular Disease; Emergency Provider Family Medicine; Visit Provider Internal Medicine Cardiovascular Disease
PROC: 027137Z Dilation of Coronary Artery, Two Arteries with Four or More Drug-eluting Intraluminal Devices, Percutaneous Approach (ICD-10-PCS; principal; 2024-12-13 07:00)
PROC: 027137Z Dilation of Coronary Artery, Two Arteries with Four or More Drug-eluting Intraluminal Devices, Percutaneous Approach (ICD-10-PCS; 2024-12-13 07:00)
DX: I21.19 ST elevation (STEMI) myocardial infarction involving other coronary artery of inferior wall (principal); J18.9 Pneumonia, unspecified organism; I50.20 Unspecified systolic (congestive) heart failure; I11.0 Hypertensive heart disease with heart failure; E11.65 Type 2 diabetes mellitus with hyperglycemia; E86.0 Dehydration; Z79.82 Long term (current) use of aspirin; Z79.02 Long term (current) use of antithrombotics/antiplatelets; Z79.4 Long term (current) use of insulin; T38.3X6A Underdosing of insulin and oral hypoglycemic [antidiabetic] drugs, initial encounter; Z91.120 Patient's intentional underdosing of medication regimen due to financial hardship; Z59.71 Insufficient health insurance coverage; K82.8 Other specified diseases of gallbladder
CPT/HCPCS: 36415; 36416; 71045; 80048; 80053; 82962; 83036; 84484; 85025; 85347; 85378; 87637; 92920; 93005; 93306; 93458; 96372; 96374; 96375; 96376; 99152; 99153; C1725; C1769; C1874; C1887; C1894; C9600; C9601; J0461; J0696; J1200; J1644; J1815; J2250; J2405; J3010; J3490; J7030; J9999; Q9967

== ENCOUNTER 2025-01-17 07:56 | Outpatient (CLI) | payer OTHER, SELFPAY ==
--- NOTE | 2025-01-17 | ECG_ITS ---
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 Interpretive Statements Lung unchanged pre/post procedure Intraprocedure shortess of breath Symptoms resoled by discharge PROCEDURE: At the baseline, the EKG revealed normal sinus rhythm with a poor R wave progression. Features of old anterolateral IN. Lower very complex in the precordial leads. Nonspecific IVCD. Features of possible old inferior wall IN.. The baseline heart was 88 bpm with a blood pressue of 114/78 mm of Hg Lexiscan was infused over a period of 20 seconds. A total of 0.4 milligrams of Lexiscan was infused. The stress phase was continued for a total of 5 minutes. Heart rate at the end of the stress phase was 90 bpm with a blood pressure 131/96 mm of Hg. The EKG at the peak infusion revealed no significant changes. Sestamibi was injected 20 seconds after the Lexiscan infusion. Heart rate at the end of the recovery phase was 100 bpm with a blood pressure of 106/79 mm of Hg. CONCLUSION: 1. No significant EKG changes with the LexiScan infusion 2. No LexiScan induced chest pain or cardiac arrhythmia 3. Normal blood pressure and heart rate response 4. Sestamibi/sestamibi perfusion scan pending; see separate report. Electronically Signed On 01-24-2025 16:13:44 CDT by Patience Rousseau M.D. [email or web address]
[2025-01-17 08:17] VITALS: BMI 36.1
--- NOTE | 2025-01-17 08:27 | NMCV_ITS ---
NM abdelrahman perf SPECT r/s* [id number] Esthela Becker Age: 54 Gender: F : 1970 Exam Date: 01/17/2025 08:57 Ordering Phys: Nita Jackson NP Technologist: ROSALINDA Bai Exam Location: [facility] Indications: cp STRESS TEST [facility] IMAGE PROTOCOL Rest/Stress 1 Lexiscan Day Radiopharmaceutical Dose (mCi) Administration Site Administered by Rest: Tc-99m 10.5 IV Jeannette Mcdowell, MANUFACTURING TECHNOLOGY PROFESSOR Sestamibi Stress:Tc-99m 32.7 IV Jeannette Jeremias, MANUFACTURING TECHNOLOGY PROFESSOR Sestamibi Rest: 17-Jan-2025 60 Discovery 630 Stress: 17-Jan-2025 30 Discovery 630 0.4mg Lexiscan. Images obtained in supine and prone position. SPECT RESULTS Technical Quality: Good Raw Data Analysis: Normal Image Corrections: No attenuation or motion correction applied Summed Stress Score: 8 Summed Rest Score: 12 Summed Difference Score: 1 PERFUSION FINDINGS Moderate area of moderate to severely decreased tracer uptake involving the basal and mid inferior, mid inferolateral and basal inferior septal segments. Some reversibility was noted in the basal inferoseptal segment FUNCTIONAL RESULTS (calculated via Gated SPECT) Stress Image LV EF (%): 68 Stress EDV (mL):72 TID: 1.18 Stress ESV (mL):23 FUNCTIONAL FINDINGS: Segmental wall motion analysis revealing no gross wall motion abnormalities IMPRESSIONS 1. Myocardial perfusion imaging revealing moderate area of moderate to severely decreased persistent tracer uptake involving the inferior , inferolateral and inferoseptal segments with slight reversibility in the inferoseptal region suggesting myocardial scarring in distribution of the right coronary artery/circumflex artery with a small area of infarction ischemia 2. Normal LV ejection fraction of 68% 3. LV wall motion analysis revealing no gross wall motion abnormalities. 4. Normal LV volume 5. Slightly elevated transient ischemic dilatation ratio 1.18 may suggest endocardial ischemia- No similar previous studies are available for comparison Dr Patience Rousseau MD [facility] (Electronically Signed) Final Date: 17 January 2025 15:29 S
[2025-01-17] MEDS: regadenoson 0.4 Mg/5 ml Syringe IVP (09:27)
[2025-01-17 09:53] VITALS: BP 131/96; PULSE 98
== END 2025-01-17 07:57 | disposition home or self-care (01) ==
LOC: CDL 07:58
PROVIDERS: Visit Provider Nurse Practitioner Family
DX: I21.19 ST elevation (STEMI) myocardial infarction involving other coronary artery of inferior wall (principal); R93.1 Abnormal findings on diagnostic imaging of heart and coronary circulation
CPT/HCPCS: 36415; 78452; 93017; 96374; A9500; J2785

== ENCOUNTER → 2025-04-25 12:00 | Outpatient (BNVA) | payer OTHER, SELFPAY | PROVIDERS: Visit Provider Internal Medicine | DX: E11.65 Type 2 diabetes mellitus with hyperglycemia (principal) | CPT/HCPCS: 36415; 80053; 80061; 82044; 83036 ==